=== PATIENT | female | born 1955 | race Caucasian/White ===

== ENCOUNTER 2017-08-27 22:07 | Emergency (ER) | payer OTHER ==
[2017-08-27 23:28] LABS: Absolute Lymphocytes (CBC) 1.6 K/uL (0.7-4.9); Absolute Monocytes 0.7 K/uL (0.1-1.3); Absolute Neutrophil 5.6 K/uL (1.8-8.0); Basophils % 0.7 % (0-1.3); Eosinophils % 3.5 % (0-4.4); Hematocrit 38.2 % (36.0-45.0); Lymphocytes % 19.7 % (15.3-44.8); MCH 29.8 pg (27.0-35.0); MCV 90.2 fL (80-100); MPV 8.2 fL (7.6-11.3); Monocytes % 8.5 % (3.3-12.3); RBC Red Blood Cell Count 4.24 M/uL (3.86-4.86)
[2017-08-27 23:39] LABS: Bicarbonate 31 mEq/L (21-31); Glucose Level 95 mg/dL (65-120); Lipase 24 U/L (22-51); Potassium 3.8 mEq/L (3.6-5.0); Sodium Level 142 mEq/L (135-145)
[2017-08-27 23:43] LABS: Protime INR 0.93
[2017-08-27 23:46] LABS: ALT/SGPT 19 IU/L (10-60); AST/SGOT 20 IU/L (10-42); Albumin 4.4 g/dL (3.2-5.5); Alkaline Phosphatase 66 IU/L (42-121); BUN Blood Urea Nitrogen 16 mg/dL (6-20); Bilirubin Direct < 0.1 mg/dL (0-0.2); Bilirubin Total 0.3 mg/dL (0.3-1.2); Protein, Total 7.5 g/dL (6.0-8.3)
[2017-08-27] MEDS ORDERED: DIPHENHYDRAMINE 50 MG/ML VIAL ONE (23:59)
[2017-08-27] MEDS ORDERED: METOCLOPRAMIDE 10 MG/2mL INJ ONE (23:59)
[2017-08-27] MEDS ORDERED: NA CHLORIDE 0.9% 500 ML ONE (23:59)
--- NOTE | 2017-08-28 00:02 | EDPHYS ---
Physician Documentation [facility] Name: Fahad Nielsen Age: 62 yrs Sex: Female : 1955 Arrival Date: 08/27/2017 Time: 22:08 Bed 8 Private MD: ED Physician Ronnie Flowers HPI: 08/27 22:37 This 62 yrs old Female presents to ER via Ambulatory with complaints of High rn Blood Pressure. 22:37 The patient has elevated blood pressure and discovered this at home. Onset: The rn symptoms/episode began/occurred at an unknown time. Modifying factors:. Associated signs and symptoms: Pertinent positives: chest pain, headache. The patient has experienced similar episodes in the past. Reports having headaches for 1 week, family came over today, had her check BP, was 200/100, no syncope, has known aneurysms, also having intermittent chest pain "for a while", had cath 1 month ago and told very small plaques, takes plavix and nitro for chest pain, no worse today. Also reports abd burning and nausea when she eats, no dark stool or hematemesis, has had gallbladder tested and told was normal. . Historical: - Allergies: 22:26 Morphine; bb - Home Meds: 22:26 alprazolam 0.5 mg Oral tab [Active]; baclofen 10 mg Oral tab [Active]; ibuprofen 800 mg bb Oral tab [Active]; Suboxone 8-2 mg sublingual film [Active]; topiramate 50 mg oral tab [Active]; amlodipine 5 mg tab [Active]; clopidogrel 75 mg oral tab [Active]; Nitroglycerin SL [Active]; - PMHx: 22:26 Aneurysm; DVT; Hypertension; bb - PSHx: 22:26 Appendectomy; bb - Immunization history:: Adult Immunizations up to date. - Social history:: Smoking status: Patient uses tobacco products, smokes one-half pack cigarettes per day, Patient/guardian denies using alcohol, street drugs. - Family history:: not pertinent. - Hospitalizations: : No recent hospitalization is reported. ROS: 22:37 Constitutional: Negative for fever, chills, and weight loss, Eyes: Negative for injury, rn pain, redness, and discharge, Neck: Negative for injury, pain, and swelling, Cardiovascular: Negative for palpitations, and edema, Respiratory: Negative for shortness of breath, cough, wheezing, and pleuritic chest pain, Abdomen/GI: Negative for vomiting, diarrhea, and constipation, Back: Negative for injury and pain, MS/Extremity: Negative for injury and deformity, Skin: Negative for injury, rash, and discoloration, Neuro: Negative for weakness, numbness, tingling, and seizure. Exam: 22:37 Constitutional: This is a well developed, well nourished patient who is awake, alert, rn and in no acute distress. Head/Face: Normocephalic, atraumatic. Eyes: Pupils equal round and reactive to light, extra-ocular motions intact. Lids and lashes normal. Conjunctiva and sclera are non-icteric and not injected. Cornea within normal limits. Periorbital areas with no swelling, redness, or edema. Neck: Trachea midline, no thyromegaly or masses palpated, and no cervical lymphadenopathy. Supple, full range of motion without nuchal rigidity, or vertebral point tenderness. No Meningismus. Cardiovascular: Regular rate and rhythm with a normal S1 and S2. No gallops, murmurs, or rubs. Normal PMI, no JVD. No pulse deficits. Respiratory: Lungs have equal breath sounds bilaterally, clear to auscultation and percussion. No rales, rhonchi or wheezes noted. No increased work of breathing, no retractions or nasal flaring. Abdomen/GI: Soft, non-tender, with normal bowel sounds. No distension or tympany. No guarding or rebound. No evidence of tenderness throughout. Skin: Warm, dry with normal turgor. Normal color with no rashes, no lesions, and no evidence of cellulitis. MS/ Extremity: Pulses equal, no cyanosis. Neurovascular intact. Full, normal range of motion. Equal circumference. Neuro: Awake and alert, GCS 15, oriented to person, place, time, and situation. Cranial nerves II-XII grossly intact. Motor strength 5/5 in all extremities. Sensory grossly intact. Cerebellar exam normal. Normal gait. Vital Signs: 22:26 BP 195 / 92; Pulse 73; Resp 12 S; Temp 97.6(O); Pulse Ox 99% on R/A; Weight 55.79 kg bb (R); Height 5 ft. 7 in. (170.18 cm) (R); Pain 8/10; 22:32 BP 187 / 79; Pulse 71; Resp 16; Pulse Ox 98% on R/A; lp1 23:00 BP 153 / 76; Pulse 65; Resp 14; Pulse Ox 99% on R/A; lp1 23:20 BP 161 / 85; Pulse 68; Resp 12; Pulse Ox 100% on R/A; lp1 08/28 00:00 BP 157 / 86; Pulse 64; Resp 12; Pulse Ox 98% on R/A; lp1 00:46 BP 165 / 76; Pulse 66; Resp 19; Pulse Ox 99% on R/A; lp1 08/27 22:26 Body Mass Index 19.26 (55.79 kg, 170.18 cm) bb MDM: 08/27 22:11 Patient medically screened. rn 08/28 00:00 Differential diagnosis: hypertensive crisis, Malignant HTN, migraine. Data reviewed: rn vital signs, nurses notes, lab test result(s), EKG, radiologic studies, CT scan, and as a result, I will discharge patient. Counseling: I had a detailed discussion with the patient and/or guardian regarding: the historical points, exam findings, and any diagnostic results supporting the discharge/admit diagnosis, lab results, radiology results, the need for outpatient follow up, to return to the emergency department if symptoms worsen or persist or if there are any questions or concerns that arise at home. Response to treatment: the patient's symptoms have mildly improved after treatment, and as a result, I will discharge patient. Special discussion: I discussed with the patient/guardian in detail that at this point there is no indication for admission to the hospital. It is understood, however, that if the symptoms persist or worsen the patient needs to return immediately for re-evaluation. 08/27 22:36 Order name: Basic Metabolic Panel; Complete Time: 23:56 rn 08/27 22:36 Order name: BNP; Complete Time: 23:56 rn 08/27 22:36 Order name: CBC with Diff; Complete Time: 23:33 rn 08/27 22:36 Order name: Hepatic Function; Complete Time: 23:56 rn 08/27 22:36 Order name: Lipase; Complete Time: 23:56 rn 08/27 22:36 Order name: Protime (+inr); Complete Time: 23:56 rn 08/27 22:36 Order name: CT Head Brain wo Cont rn 08/27 22:36 Order name: Ptt, Activated; Complete Time: 23:56 rn 08/27 22:36 Order name: Troponin (emerg Dept Use Only); Complete Time: :56 rn 08/27 22:36 Order name: EKG; Complete Time: 22:37 rn 08/27 22:36 Order name: Cardiac monitoring; Complete Time: :56 rn 08/27 22:36 Order name: EKG - Nurse/Tech; Complete Time: 23:16 rn 08/27 22:36 Order name: IV Saline Lock; Complete Time: 23:05 rn 08/27 22:36 Order name: Labs collected and sent; Complete Time: 23:05 rn 08/27 22:36 Order name: NPO; Complete Time: :56 rn 08/27 22:36 Order name: O2 Per Protocol; Complete Time: :56 rn 08/27 22:36 Order name: O2 Sat Monitoring; Complete Time: 22:56 rn Administered Medications: 00:07 Drug: Benadryl 12.5 mg Route: IVP; Site: right antecubital; lp1 00:47 Follow up: Response: No adverse reaction; No change in condition lp1 00:07 Drug: Reglan 10 mg Route: IVP; Site: right antecubital; lp1 00:47 Follow up: Response: No change in condition lp1 00:07 Drug: NS 0.9% 500 ml Route: IV; Rate: bolus; Site: right antecubital; lp1 00:48 Follow up: IV Status: Completed infusion; IV Intake: 500ml lp1 Disposition: 08/28/17 00:01 Discharged to Home. Impression: Headache, Hypertension. - Condition is Stable. - Discharge Instructions: Migraine Headache, Hypertension. - Medication Reconciliation Form, Thank You Letter, Antibiotic Education, Prescription Opioid Use form. - Follow up: Private Physician; When: As needed; Reason: Recheck today's complaints, Re-evaluation by your physician. - Problem is an ongoing problem. - Symptoms have improved. Signatures: Dispatcher [employer] Altagracia Layton, RN RN Ronnie Jones MD MD rn Pena, Laura, RN RN lp1
--- NOTE | 2017-08-28 00:02 | ER ---
Nurse's Notes [facility] Name: Fahad Nielsen Age: 62 yrs Sex: Female : 1955 Arrival Date: 08/27/2017 Time: 22:08 Bed 8 Private MD: Diagnosis: Headache;Hypertension Presentation: 08/27 22:21 Presenting complaint: Patient states: she has had a headache for about a week, has bb chronic chest pain, has burning to upper abdomen after eating and vomits, pt's family had her check her blood pressure tonight and it was elevated. Transition of care: patient was not received from another setting of care. Onset of symptoms was August 20, 2017. Initial Sepsis Screen: Does the patient meet any 2 criteria? No. Patient's initial sepsis screen is negative. Does the patient have a suspected source of infection? No. Patient's initial sepsis screen is negative. Care prior to arrival: Medication(s) given: Nitroglycerin, 0.4 mg SL x 2. 22:21 Method Of Arrival: Ambulatory bb 22:21 Acuity: MOOKIE 2 bb Historical: - Allergies: 22:26 Morphine; bb - Home Meds: 22:26 alprazolam 0.5 mg Oral tab [Active]; baclofen 10 mg Oral tab [Active]; ibuprofen 800 mg bb Oral tab [Active]; Suboxone 8-2 mg sublingual film [Active]; topiramate 50 mg oral tab [Active]; amlodipine 5 mg tab [Active]; clopidogrel 75 mg oral tab [Active]; Nitroglycerin SL [Active]; - PMHx: 22:26 Aneurysm; DVT; Hypertension; bb - PSHx: 22:26 Appendectomy; bb - Immunization history:: Adult Immunizations up to date. - Social history:: Smoking status: Patient uses tobacco products, smokes one-half pack cigarettes per day, Patient/guardian denies using alcohol, street drugs. - Family history:: not pertinent. - Hospitalizations: : No recent hospitalization is reported. Screenin:33 Abuse screen: Denies threats or abuse. Denies injuries from another. Nutritional lp1 screening: No deficits noted. Tuberculosis screening: No symptoms or risk factors identified. Fall Risk None identified. Assessment: 22:31 General: Appears in no apparent distress. Behavior is appropriate for age. Pain: lp1 Complains of pain in back of head, abdomen, right jaw Pain currently is 8 out of 10 on a pain scale. Quality of pain is described as aching. Neuro: Level of Consciousness is awake, alert, obeys commands, Oriented to person, place, time, situation. Cardiovascular: Patient's skin is warm and dry. Respiratory: Respiratory effort is even, unlabored, Respiratory pattern is regular, symmetrical, Breath sounds are clear bilaterally. GI: Abdomen is non-distended. : No signs and/or symptoms were reported regarding the genitourinary system. EENT: No signs and/or symptoms were reported regarding the EENT system. Derm: Skin is pink, warm \T\ dry. Musculoskeletal: Circulation, motion, and sensation intact. 23:45 Reassessment: Patient and/or family updated on plan of care and expected duration. Pain lp1 level reassessed. Patient states continued pain to head, Provider notified. 08/28 00:45 Reassessment: Patient is alert, oriented x 3, equal unlabored respirations, skin lp1 warm/dry/pink. Patient states pain to head unchanged but ready for discharge. Vital Signs: 08/27 22:26 BP 195 / 92; Pulse 73; Resp 12 S; Temp 97.6(O); Pulse Ox 99% on R/A; Weight 55.79 kg bb (R); Height 5 ft. 7 in. (170.18 cm) (R); Pain 8/10; 22:32 BP 187 / 79; Pulse 71; Resp 16; Pulse Ox 98% on R/A; lp1 23:00 BP 153 / 76; Pulse 65; Resp 14; Pulse Ox 99% on R/A; lp1 23:20 BP 161 / 85; Pulse 68; Resp 12; Pulse Ox 100% on R/A; lp1 08/28 00:00 BP 157 / 86; Pulse 64; Resp 12; Pulse Ox 98% on R/A; lp1 00:46 BP 165 / 76; Pulse 66; Resp 19; Pulse Ox 99% on R/A; lp1 08/27 22:26 Body Mass Index 19.26 (55.79 kg, 170.18 cm) bb ED Course: 08/27 22:08 Patient arrived in ED. ds1 22:11 Ronnie Flowers MD is Attending Physician. rn 22:23 Triage completed. bb 22:26 Arm band placed on Patient placed in an exam room, on a stretcher, on pulse oximetry. bb Family accompanied patient. 22:30 Ofelia Moreira, RN is Primary Nurse. lp1 22:33 Patient has correct armband on for positive identification. Bed in low position. lp1 classroom monitor on. Pulse ox on. NIBP on. 22:56 CT Head Brain wo Cont In Process Unspecified. EDMS 23:00 Initial lab(s) drawn, by me, sent to lab. Inserted saline lock: 20 gauge in right cc antecubital area, using aseptic technique. Blood collected. 23:16 EKG done, by ED staff, reviewed by Ronnie Flowers MD. cc 04 00:46 No provider procedures requiring assistance completed. IV discontinued, No lp1 redness/swelling at site. Pressure dressing applied. Administered Medications: 00:07 Drug: Benadryl 12.5 mg Route: IVP; Site: right antecubital; lp1 00:47 Follow up: Response: No adverse reaction; No change in condition lp1 00:07 Drug: Reglan 10 mg Route: IVP; Site: right antecubital; lp1 00:47 Follow up: Response: No change in condition lp1 00:07 Drug: NS 0.9% 500 ml Route: IV; Rate: bolus; Site: right antecubital; lp1 00:48 Follow up: IV Status: Completed infusion; IV Intake: 500ml lp1 Intake: 00:48 IV: 500ml; Total: 500ml. lp1 Outcome: 00:01 Discharge ordered by . rn 00:46 Discharged to home via wheelchair, with family. lp1 00:46 Condition: good 00:46 Discharge instructions given to patient, family, Instructed on discharge instructions, follow up and referral plans. Demonstrated understanding of instructions, follow-up care. 00:47 Patient left the ED. lp1 Signatures: Dispatcher [employer] [facility] Camilla Hernandez ds1 Altagracia Martínez RN RN bb Ronnie Flowers MD MD rn Christian, Chelsea Ofelia Moreira, PARDEEP RN lp1
[2017-08-28 00:58] VITALS: TEMP 97.6
[2017-08-28 01:07] VITALS: BP 165/76; O2SAT 99
--- NOTE | 2017-08-28 07:15 | EKG ---
Test Date: 2017-08-27 Test Time: 23:13:06 It Risk And Assurance Manager: SILVA MEASUREMENT RESULTS: Intervals: Rate: 62 AZ: 182 QRSD: 106 QT: 446 QTc: 452 Hunter: P: 48 AZ: 182 QRS: 17 T: 39 INTERPRETIVE STATEMENTS: Normal sinus rhythm Normal ECG Compared to ECG 06/30/2017 21:55:41 No significant changes Electronically Signed On 08-28-17 07:14:55 CDT by Francisco Alamo
--- NOTE | 2017-08-28 08:14 | RAD REPORT ---
EXAM DESCRIPTION: CT - Head Brain Wo Cont - 08/28/2017 7:00 am CLINICAL HISTORY: Chest pain, headache A preliminary written report was provided at the time of the study, and the report was reviewed prio r to final dictation. COMPARISON: CT head March 2014 TECHNIQUE: Axial 5 mm thick images of the head were obtained without IV contrast. All CT scans are performed using dose optimization technique as appropriate and may include automated exposure control or mA/KV adjustment according to patient size. FINDINGS: No intracranial hemorrhage, mass, edema or shift of mid-line structures. No acute cortical based infarction. Left greater than right frontal lobe encephalomalacia is present presumed to be fr om prior ischemic events. The pattern is not clearly different from 2013. No cortical edema or sulcal effacement. No ventricular enlargement. No abnormal extra-axial fluid collections. Intracranial find ings are similar to the comparison. Physiologic and arterial calcifications are present. Mastoid air cells are clear. Chronic right maxillary sinusitis changes are noted. No acute bony findings. IMPRESSION: Bifrontal encephalomalacia changes similar to 2014. No acute intracranial finding seen.
== END 2017-08-28 00:47 | disposition home or self-care (01) ==
LOC: ER 22:07
DX: I10 Essential (primary) hypertension (principal); F17.210 Nicotine dependence, cigarettes, uncomplicated; Z88.5 Allergy status to narcotic agent; Z86.718 Personal history of other venous thrombosis and embolism
CPT/HCPCS: 36415; 70450; 80048; 80076; 83690; 83880; 84484; 85025; 85610; 85730; 93005; 96361; 96374; 96375; 99284; J2765

== ENCOUNTER 2018-04-13 08:30 | Day surgery (SDC) | payer OTHER ==
[2018-04-13] MEDS ORDERED: Ringers Lactate 1,000 ML IV ONE (09:05)
[2018-04-13] MEDS ORDERED: LIDOCAINE 1% MPF 5 ML VIAL ONE (10:36)
[2018-04-13] MEDS ORDERED: PROPOFOL 200 MG/20 ML VIAL IV ONE (10:36)
--- NOTE | 2018-04-13 10:54 | ENDO RPT ---
[address], [address] COLONOSCOPY PROCEDURE REPORT EXAM DATE: 04/13/2018 PATIENT NAME: Fahad Nielsen I. MR #: [id number] BIRTHDATE: 1955 ATTENDING: Daniel Larson DR STATUS: outpatient CIRCULAR STUFFER: Javier Keller, Tri Pritchett RN, and Mary Keller INDICATIONS: The patient is a 63 yr old Female here for a colonoscopy due to colon cancer screening PROCEDURE PERFORMED: Screening Colonoscopy and Colonoscopy MEDICATIONS: Per Anesthesia. ESTIMATED BLOOD LOSS: None CONSENT: The patient understands the risks and benefits of the procedure and understands that these risks include, but are not limited to: sedation, allergic reaction, infection, perforation and/or bleeding. Alternative means of evaluation and treatment include, among others: physical exam, x-rays, and/or surgical intervention. The patient elects to proceed with this endoscopic procedure. DESCRIPTION OF PROCEDURE: During intra-op preparation period all mechanical medical equipment was checked for proper function. Hand hygiene and appropriate measures for infection prevention was taken. Procedure, possible complications, alternatives including, but not limited to possibility of bleeding, perforation, tear, infection, sepsis, need for surgery, need for blood transfusion, were explained to the patient. After the risks, benefits and alternatives of the procedure were thoroughly explained, Informed consent was verified, confirmed and timeout was successfully executed by the treatment team. The patient was placed in the left lateral position. A digital rectal exam was performed and revealed no abnormalities of the rectum. After appropriate level of anesthesia, the scope was passed. The EC-[id number] ([id number]) and [id number] ([id number]) endoscope was introduced through the anus and advanced to the cecum, which was identified by both the appendix and ileocecal valve. The quality of the prep was poor. The instrument was then slowly withdrawn as the colon was fully examined. Scope withdrawal time was 10 minutes. COLON FINDINGS: Mild diverticulosis was noted in the sigmoid colon. No bleeding was noted from the diverticulosis. The colon mucosa was otherwise normal. Retroflexed views revealed no abnormalities. The scope was then completely withdrawn from the patient and the procedure terminated. ADVERSE EVENTS: There were no complications. IMPRESSIONS: 1. Mild diverticulosis was noted in the sigmoid colon 2. The colon mucosa was otherwise normal RECOMMENDATIONS: low fiber / diverticular diet RECALL: Return in 3 year(s) for Colonoscopy. Poor Prep - 2 day prep on next colonoscopy Daniel Larson DR eSigned: Daniel Larson DR 04/13/2018 10:53 AM cc: CPT CODES: ICD9 CODES: PATIENT NAME: Fahad Nielsen I. MR#: [id number]
[2018-04-13 11:36] VITALS: BP 131/71; TEMP 98; O2SAT 100
== END 2018-04-13 11:30 | disposition home or self-care (01) ==
LOC: OR 08:30
PROVIDERS: ATTEND Surgery
PROC: 0DJD8ZZ Inspection of Lower Intestinal Tract, Via Natural or Artificial Opening Endoscopic (ICD-10-PCS; principal; 2018-04-13 11:15)
DX: Z12.11 Encounter for screening for malignant neoplasm of colon (principal); K57.30 Diverticulosis of large intestine without perforation or abscess without bleeding; I10 Essential (primary) hypertension; F41.9 Anxiety disorder, unspecified; Z86.73 Personal history of transient ischemic attack (TIA), and cerebral infarction without residual deficits; Z80.9 Family history of malignant neoplasm, unspecified; Z83.3 Family history of diabetes mellitus; Z82.3 Family history of stroke; Z82.49 Family history of ischemic heart disease and other diseases of the circulatory system
CPT/HCPCS: 45378; J2704

== ENCOUNTER 2018-10-14 00:13 | Emergency (ER) | payer OTHER ==
[2018-10-14] MEDS ORDERED: NA CHLORIDE 0.9% 1,000 ML ONE (01:22)
[2018-10-14 02:01] LABS: Absolute Lymphocytes (CBC) 1.9 K/uL (0.7-4.9); Absolute Monocytes 0.7 K/uL (0.1-1.3); Absolute Neutrophil 4.7 K/uL (1.8-8.0); Basophils % 0.4 % (0-1.3); Eosinophils % 3.7 % (0-4.4); Hematocrit 37.2 % (36.0-45.0); Lymphocytes % 24.7 % (15.3-44.8); MPV 8.2 fL (7.6-11.3); Monocytes % 9.6 % (3.3-12.3); RBC Red Blood Cell Count 4.07 M/uL (3.86-4.86)
[2018-10-14 02:05] LABS: Protime INR 0.95
[2018-10-14 02:21] LABS: ALT/SGPT 25 U/L (12-78); AST/SGOT 24 U/L (15-37); Albumin 4.2 g/dL (3.4-5.0); Alkaline Phosphatase 78 U/L (45-117); BUN Blood Urea Nitrogen 30 mg/dL (7-18); Bicarbonate 23 mmol/L (21-32); Bilirubin Direct < 0.1 mg/dL (0-0.2); Bilirubin Total 0.4 mg/dL (0.2-1.0); Glucose Level 91 mg/dL (74-106); Lipase 122 U/L (73-393); Magnesium 2.2 mg/dL (1.8-2.4); NT PRO-BNP 38 pg/mL (<125); Potassium 3.5 mmol/L (3.5-5.1); Protein, Total 7.6 g/dL (6.4-8.2); Sodium Level 140 mmol/L (136-145); Troponin (Emerg Dept Use Only) < 0.02 ng/mL (0.0-0.045)
[2018-10-14] MEDS ORDERED: ACETAMINOPHEN 325 MG TABLET ONE (02:23)
[2018-10-14] MEDS ORDERED: ONDANSETRON 4 MG/2 ML VIAL ONE (02:23)
--- NOTE | 2018-10-14 02:56 | EDPHYS ---
Physician Documentation [facility] Name: Fahad Nielsen Age: 63 yrs Sex: Female : 1955 Arrival Date: 10/14/2018 Time: 00:17 Bed 25 Private MD: Garrett Mayberry ED Physician Chuy Garcia HPI: 10/14 01:01 This 63 yrs old Female presents to ER via Wheelchair with complaints of Fall mary Injury, Head Injury-Adult. 01:01 Details of fall: The patient fell from an upright position. Onset: The symptoms/episode mary began/occurred 1 day(s) ago. Associated injuries: The patient sustained injury to the head, contusion, deformity, hematoma, pain. Severity of symptoms: At their worst the symptoms were mild, moderate, in the emergency department the symptoms are unchanged. Historical: - Allergies: 00:39 Morphine; mg2 - Home Meds: 00:39 alprazolam 0.5 mg Oral tab [Active]; amlodipine 5 mg tab [Active]; clopidogrel 75 mg mg2 Oral tab [Active]; ibuprofen 800 mg Oral tab [Active]; baclofen 10 mg Oral tab [Active]; Suboxone 8-2 mg sublingual film [Active]; Nitroglycerin SL [Active]; topiramate 50 mg Oral tab [Active]; - PMHx: 00:39 Aneurysm; DVT; Hypertension; mg2 - PSHx: 00:39 leg, hand and neck surgery; mg2 - Immunization history: Last tetanus immunization: unknown. - Social history:: Smoking status: Patient uses tobacco products, unknown amount Patient/guardian denies using alcohol, street drugs. - Ebola Screening: : No symptoms or risks identified at this time. ROS: 01:03 Constitutional: Negative for fever, chills, and weight loss, ENT: Negative for injury, mary pain, and discharge, Neck: Negative for injury, pain, and swelling, Cardiovascular: Negative for chest pain, palpitations, and edema, Respiratory: Negative for shortness of breath, cough, wheezing, and pleuritic chest pain, Abdomen/GI: Negative for abdominal pain, nausea, vomiting, diarrhea, and constipation, : Negative for injury, bleeding, discharge, and swelling, MS/Extremity: Negative for injury and deformity, Skin: Negative for injury, rash, and discoloration, Neuro: Negative for headache, weakness, numbness, tingling, and seizure, Psych: Negative for depression, anxiety, suicide ideation, homicidal ideation, and hallucinations, Allergy/Immunology: Negative for hives, rash, and allergies, Endocrine: Negative for neck swelling, polydipsia, polyuria, polyphagia, and marked weight changes, Hematologic/Lymphatic: Negative for swollen nodes, abnormal bleeding, and unusual bruising. 01:03 Eyes: Positive for pain. :03 Neuro: Positive for headache. Exam: :03 Constitutional: This is a well developed, well nourished patient who is awake, alert, mary and in no acute distress. Eyes: Pupils equal round and reactive to light, extra-ocular motions intact. Lids and lashes normal. Conjunctiva and sclera are non-icteric and not injected. Cornea within normal limits. Periorbital areas with no swelling, redness, or edema. ENT: Nares patent. No nasal discharge, no septal abnormalities noted. Tympanic membranes are normal and external auditory canals are clear. Oropharynx with no redness, swelling, or masses, exudates, or evidence of obstruction, uvula midline. Mucous membranes moist. Chest/axilla: Normal chest wall appearance and motion. Nontender with no deformity. No lesions are appreciated. Cardiovascular: Regular rate and rhythm with a normal S1 and S2. No gallops, murmurs, or rubs. Normal PMI, no JVD. No pulse deficits. Respiratory: Lungs have equal breath sounds bilaterally, clear to auscultation and percussion. No rales, rhonchi or wheezes noted. No increased work of breathing, no retractions or nasal flaring. Abdomen/GI: Soft, non-tender, with normal bowel sounds. No distension or tympany. No guarding or rebound. No evidence of tenderness throughout. Female : Normal external genitalia. Skin: Warm, dry with normal turgor. Normal color with no rashes, no lesions, and no evidence of cellulitis. MS/ Extremity: Pulses equal, no cyanosis. Neurovascular intact. Full, normal range of motion. Neuro: Awake and alert, GCS 15, oriented to person, place, time, and situation. Cranial nerves II-XII grossly intact. Motor strength 5/5 in all extremities. Sensory grossly intact. Cerebellar exam normal. Normal gait. Psych: Awake, alert, with orientation to person, place and time. Behavior, mood, and affect are within normal limits. 01:03 Head/face: Noted is abrasion(s), hematoma, swelling, that is mild, of the left eye. 01:03 Neck: C-spine: C-collar placed in ED, Thyroid: appears normal, Trachea: is midline with no obvious abnormalities, ROM/movement: pain. 01:03 Back: pain, that is mild, ROM is painful, normal spinal alignment noted, CVA tenderness, is absent, vertebral tenderness, is not appreciated. Vital Signs: 00:35 BP 165 / 96; Pulse 90; Resp 18; Temp 99.6; Pulse Ox 98% on R/A; Weight 63.5 kg; Height mg2 5 ft. 7 in. (170.18 cm); Pain 7/10; 00:45 BP 148 / 87; Pulse 75; Resp 18; Pulse Ox 96% on R/A; mg2 02:13 BP 138 / 70; Pulse 75; Resp 18; Pulse Ox 98% on R/A; Pain 8/10; mg2 03:15 BP 128 / 81; Pulse 82; Resp 18; Temp 98; Pulse Ox 100% on R/A; Pain 0/10; mg2 00:35 Body Mass Index 21.93 (63.50 kg, 170.18 cm) mg2 Abiodun Coma Score: 00:35 Eye Response: spontaneous(4). Verbal Response: oriented(5). Motor Response: obeys mg2 commands(6). Total: 15. Trauma Score (Adult): 00:35 Eye Response: spontaneous(1); Verbal Response: oriented(1); Motor Response: obeys mg2 commands(2); Systolic BP: > 89 mm Hg(4); Respiratory Rate: 10 to 29 per min(4); [place]sie Score: 15; Trauma Score: 12 02:58 Eye Response: spontaneous(1); Verbal Response: oriented(1); Motor Response: obeys mg2 commands(2); Systolic BP: > 89 mm Hg(4); Respiratory Rate: 10 to 29 per min(4); [place] Score: 15; Trauma Score: 12 MDM: 00:48 Patient medically screened. [facility] 01:03 Data reviewed: vital signs, nurses notes, lab test result(s), EKG, radiologic studies, [facility] CT scan, plain films. 10/14 01:01 Order name: Basic Metabolic Panel [facility] 10/14 01:01 Order name: CBC with Diff [facility] 10/14 01:01 Order name: LFT's [facility] 10/14 01:01 Order name: Magnesium [facility] 10/14 01:01 Order name: NT PRO-BNP; Complete Time: 02:28 [facility] 10/14 01:01 Order name: PT-INR; Complete Time: 02:28 [facility] 10/14 01:01 Order name: Troponin (emerg Dept Use Only); Complete Time: 02:28 [facility] 10/14 01:01 Order name: Urine Culture [facility] 10/14 01:01 Order name: Lipase; Complete Time: 02:28 [facility] 10/14 01:04 Order name: Basic Metabolic Panel; Complete Time: 02:28 [facility] 10/14 01:05 Order name: CBC with Automated Diff; Complete Time: 02:28 [facility] 10/14 01:05 Order name: Liver (Hepatic) Function; Complete Time: 02:28 [facility] 10/14 01:05 Order name: Magnesium; Complete Time: 02:28 [facility] 10/14 01:01 Order name: CT Traumagram (Head C Spine CAP wo con) [facility] 10/14 01:01 Order name: XRAY Chest (1 view) [facility] 10/14 01:01 Order name: EKG; Complete Time: 01:06 [facility] 10/14 01:01 Order name: Cardiac monitoring; Complete Time: 02:06 [facility] 10/14 01:01 Order name: EKG - Nurse/Tech; Complete Time: 02:07 [facility] 10/14 01:01 Order name: IV Saline Lock; Complete Time: 02:07 [facility] 10/14 01:01 Order name: Labs collected and sent; Complete Time: 02:12 [facility] 10/14 01:01 Order name: O2 Per Protocol; Complete Time: 02:12 [facility] 10/14 01:01 Order name: O2 Sat Monitoring; Complete Time: 02:12 [facility] 10/14 01:01 Order name: Urine Dipstick-Ancillary (obtain specimen); Complete Time: 02:56 [facility] 10/14 01:01 Order name: Ice pack; Complete Time: 01:17 [facility] Administered Medications: 02:06 Drug: NS 0.9% 1000 ml Route: IV; Rate: 125 ml/hr; Site: right forearm; mg2 02:56 Follow up: Response: No adverse reaction; IV Status: Order to discontinue infusion; IV mg2 Intake: 500ml 02:12 Drug: Tylenol 650 mg Route: PO; mg2 02:55 Follow up: Response: No adverse reaction; Marked relief of symptoms mg2 02:12 Drug: Zofran 4 mg Route: IVP; Site: right forearm; mg2 02:55 Follow up: Response: No adverse reaction; Marked relief of symptoms; Pain is decreased mg2 Disposition: 10/14/18 02:54 Discharged to Home. Impression: Weakness, Fall due to bumping against object, Superficial injury of head. - Condition is Stable. - Discharge Instructions: Head Injury, Adult, Weakness, Fatigue, Weakness, [id number], Head Injury, Adult, [id number]. - Medication Reconciliation Form, Thank You Letter, Antibiotic Education, Prescription Opioid Use form. - Follow up: Garrett Mayberry; When: 2 - 3 days; Reason: Recheck today's complaints, Continuance of care, Re-evaluation by your physician. - Problem is new. - Symptoms have improved. Signatures: Dispatcher [employer] [facility] Chuy Garcia MD MD cha Gardose, Michele RN RN mg2 Corrections: (The following items were deleted from the chart) 01:26 00:43 Head C Spine MPR Wo Con+CT.RAD.BRZ ordered. [facility] 03:16 02:54 10/14/2018 02:54 Discharged to Home. Impression: Weakness; Fall due to bumping mg2 against object; Superficial injury of head. Condition is Stable. Discharge Instructions: Head Injury, Adult, Weakness, Fatigue, Weakness, [id number], Head Injury, Adult, [id number]. Forms are Medication Reconciliation Form, Thank You Letter, Antibiotic Education, Prescription Opioid Use. Follow up: Garrett Mayberry; When: 2 - 3 days; Reason: Recheck today's complaints, Continuance of care, Re-evaluation by your physician. Problem is new. Symptoms have improved. mary
--- NOTE | 2018-10-14 02:56 | ER ---
Nurse's Notes [facility] Name: Fahad Nielsen Age: 63 yrs Sex: Female : 1955 Arrival Date: 10/14/2018 Time: 00:17 Bed 25 Private MD: Garrett Mayberry Diagnosis: Weakness;Fall due to bumping against object;Superficial injury of head Presentation: 10/14 00:32 Presenting complaint: Patient states: i was using my walker last night when I tripped mg2 and fell and hit my head on the floor. i also have neck pain and vomited twice this afternoon around 3 pm. my son thinks i had episode of confusion and not acting right today. Care prior to arrival: None. Mechanism of Injury: Fall from standing position. an unknown distance. 00:32 Acuity: MOOKIE 2 mg2 00:32 Method Of Arrival: Wheelchair mg2 00:41 Trauma event details: Injury occurred in the county of Injury occurred[place] at home. Injury mg2 occurred: October 12, 2018. 00:42 Transition of care: patient was not received from another setting of care. Onset of mg2 symptoms was October 13, 2018 at 15:00. Risk Assessment: Do you want to hurt yourself or someone else? Patient reports no desire to harm self or others. Initial Sepsis Screen: Does the patient meet any 2 criteria? No. Patient's initial sepsis screen is negative. Does the patient have a suspected source of infection? No. Patient's initial sepsis screen is negative. Trauma Activation: Alert Physician: ED Physician; Name: dr Garcia; Notified At: 00:41; Arrived At: 00:41 Physician: General Surgeon; Name: ; Notified At: 00:41; Arrived At: Physician: Radiology; Name: Elle Almeida; Notified At: 00:41; Arrived At: 00:41 Physician: Respiratory; Name: ; Notified At: 00:41; Arrived At: Physician: Lab; Name: ; Notified At: 00:41; Arrived At: Historical: - Allergies: 00:39 Morphine; mg2 - Home Meds: 00:39 alprazolam 0.5 mg Oral tab [Active]; amlodipine 5 mg tab [Active]; clopidogrel 75 mg mg2 Oral tab [Active]; ibuprofen 800 mg Oral tab [Active]; baclofen 10 mg Oral tab [Active]; Suboxone 8-2 mg sublingual film [Active]; Nitroglycerin SL [Active]; topiramate 50 mg Oral tab [Active]; - PMHx: 00:39 Aneurysm; DVT; Hypertension; mg2 - PSHx: 00:39 leg, hand and neck surgery; mg2 - Immunization history: Last tetanus immunization: unknown. - Social history:: Smoking status: Patient uses tobacco products, unknown amount Patient/guardian denies using alcohol, street drugs. - Ebola Screening: : No symptoms or risks identified at this time. Screenin:37 Abuse screen: Denies threats or abuse. Denies injuries from another. Nutritional mg2 screening: No deficits noted. Tuberculosis screening: No symptoms or risk factors identified. 00:42 Fall Risk Fall in past 12 months (25 points). mg2 Primary Survey: 00:36 NO uncontrolled hemorrhage observed. A: The patient is alert. Airway: patent. mg2 Breathing/Chest: Respiratory pattern: regular, Respiratory effort: spontaneous, unlabored, Breath sounds: clear, bilaterally. in mediastinum, right upper lobe and left upper lobe. Circulation: Skin color: pink. Disability Alert. Exposure/Environment: All clothing and personal items were removed. Forensic evidence collection is not deemed to be indicated at this time. Items placed in patient belonging bag. There is no evidence of uncontrolled external bleeding. Obvious injury(ies) are noted at this time: swelling and bruising in the forehead A warming method has been applied: A warm blanket has been provided to the patient. 02:13 Reassessment Airway Airway Patent Breathing/Chest Respiratory pattern Regular mg2 Respiratory effort Spontaneous Unlabored Circulation Heart rhythm Sinus rhythm Color [place] Disability Alert. Assessment: 00:38 General: Appears in no apparent distress. uncomfortable, Behavior is calm, cooperative. mg2 00:43 Pain: Complains of pain in neck Pain does not radiate. Pain currently is 7 out of 10 on mg2 a pain scale. Quality of pain is described as aching, Pain began gradually, Is intermittent. Neuro: Level of Consciousness is awake, alert, obeys commands, Oriented to person, place, time, situation, Reports confusion. Cardiovascular: Capillary refill < 3 seconds Patient's skin is warm and dry. Respiratory: Airway is patent Respiratory effort is even, unlabored, Respiratory pattern is regular, symmetrical. GI: Reports vomiting, since this afternoon. : No signs and/or symptoms were reported regarding the genitourinary system. EENT: No signs and/or symptoms were reported regarding the EENT system. Derm: Skin is intact, is healthy with good turgor, Skin is pink, warm \T\ dry. normal. Musculoskeletal: Circulation, motion, and sensation intact. Capillary refill < 3 seconds. 01:01 Reassessment: patient sent to ct scan. mg2 02:12 Reassessment: patient complained of nausea and headache. pain addressed. mg2 Vital Signs: 00:35 BP 165 / 96; Pulse 90; Resp 18; Temp 99.6; Pulse Ox 98% on R/A; Weight 63.5 kg; Height mg2 5 ft. 7 in. (170.18 cm); Pain 7/10; 00:45 BP 148 / 87; Pulse 75; Resp 18; Pulse Ox 96% on R/A; mg2 02:13 BP 138 / 70; Pulse 75; Resp 18; Pulse Ox 98% on R/A; Pain 8/10; mg2 03:15 BP 128 / 81; Pulse 82; Resp 18; Temp 98; Pulse Ox 100% on R/A; Pain 0/10; mg2 00:35 Body Mass Index 21.93 (63.50 kg, 170.18 cm) mg2 Abiodun Coma Score: 00:35 Eye Response: spontaneous(4). Verbal Response: oriented(5). Motor Response: obeys mg2 commands(6). Total: 15. Trauma Score (Adult): 00:35 Eye Response: spontaneous(1); Verbal Response: oriented(1); Motor Response: obeys mg2 commands(2); Systolic BP: > 89 mm Hg(4); Respiratory Rate: 10 to 29 per min(4); [place] Score: 15; Trauma Score: 12 02:58 Eye Response: spontaneous(1); Verbal Response: oriented(1); Motor Response: obeys mg2 commands(2); Systolic BP: > 89 mm Hg(4); Respiratory Rate: 10 to 29 per min(4); Abiodun Score: 15; Trauma Score: 12 ED Course: 00:17 Patient arrived in ED. es 00:18 Garrett Mayberry DO is Private Physician. es 00:22 Eldon Talley, RN is Primary Nurse. mg2 00:35 Triage completed. mg2 00:40 Ice pack to injury. mg2 00:41 Patient has correct armband on for positive identification. Door closed. Warm blanket mg2 given. c-collar applied. 00:41 No provider procedures requiring assistance completed. mg2 00:43 Arm band placed on. mg2 00:43 Patient maintains SpO2 saturation greater than 95% on room air. Thermoregulation: warm mg2 blanket given to patient. 00:48 Chuy Garcia MD is Attending Physician. mary 01:38 X-ray completed. Patient tolerated procedure well. kw 01:39 XRAY Chest (1 view) In Process Unspecified. EDMS 02:09 CT Traumagram (Head C Spine CAP wo con) In Process Unspecified. EDMS 02:53 Garrett Mayberry DO is Referral Physician. mary 03:15 IV discontinued, intact, bleeding controlled, No redness/swelling at site. Pressure mg2 dressing applied. Administered Medications: 02:06 Drug: NS 0.9% 1000 ml Route: IV; Rate: 125 ml/hr; Site: right forearm; mg2 02:56 Follow up: Response: No adverse reaction; IV Status: Order to discontinue infusion; IV mg2 Intake: 500ml 02:12 Drug: Tylenol 650 mg Route: PO; mg2 02:55 Follow up: Response: No adverse reaction; Marked relief of symptoms mg2 02:12 Drug: Zofran 4 mg Route: IVP; Site: right forearm; mg2 02:55 Follow up: Response: No adverse reaction; Marked relief of symptoms; Pain is decreased mg2 Intake: 00:35 PO: 0ml; Total: 0ml. mg2 02:56 IV: 500ml; Total: 500ml. mg2 Outcome: 02:54 Discharge ordered by . mary 03:15 Discharged to home via wheelchair, with family. mg2 03:15 Condition: good 03:15 Discharge instructions given to patient, Instructed on discharge instructions, follow up and referral plans. Demonstrated understanding of instructions, follow-up care. 03:16 Patient's length of stay in the Emergency Department was greater than 2 hours. awaited mg2 for all the results. Patient's length of stay extended due to 03:16 Patient left the ED. mg2 Signatures: Dispatcher [employer] [facility] Chuy Garcia MD MD cha Salyer, Edna es Whitley, Kimberlee kw Gardose, Eldon, RN RN mg2 Corrections: (The following items were deleted from the chart) 01:12 01:11 BP 148 / 87; Pulse 75bpm; Resp 18bpm; Pulse Ox 96% RA; mg2 mg2 02:58 00:41 Trauma Activation: Alert mg2 mg2
[2018-10-14 03:42] VITALS: BP 128/81; TEMP 98; O2SAT 100
--- NOTE | 2018-10-14 09:02 | RAD REPORT ---
EXAM DESCRIPTION: Liyah Single View10/14/2018 1:40 am CLINICAL HISTORY: Cough COMPARISON: 2009 FINDINGS: The lungs appear clear of acute infiltrate. The heart is normal size. Chronic deformity o f proximal right clavicle IMPRESSION: No acute abnormalities displayed
--- NOTE | 2018-10-14 10:30 | EKG ---
Test Date: 2018-10-14 Test Time: 01:52:13 [employer] Estate Account Executive: MG MEASUREMENT RESULTS: Intervals: Rate: 75 SC: 178 QRSD: 102 QT: 396 QTc: 442 [place]: P: 51 SC: 178 QRS: 23 T: 65 INTERPRETIVE STATEMENTS: Normal sinus rhythm Normal ECG Compared to ECG 08/27/2017 23:13:06 No significant changes Electronically Signed On 10-14-18 10:29:55 CDT by Francisco Alamo
--- NOTE | 2018-10-15 11:25 | RAD REPORT ---
EXAM DESCRIPTION: CT - Head C Spine Cap Wo Con - 10/14/2018 6:14 am CLINICAL HISTORY: PAIN/injury COMPARISON: None available TECHNIQUE: Axial CT of the head obtained from the skull apex to the skull base without contrast. Axi al CT images of the cervical spine obtained from the skull base through the thoracic inlet. Sagittal and coronal reformatted images available. Axial CT images of the chest, abdomen, and pelvis obtained without IV contrast. Suboptimal evaluation of the soft tissues, vasculature, and solid organs due to lack of IV contrast. FINDINGS: CT head: No acute intracranial hemorrhage identified. No mass, mass effect, shift of the midline, abnormal ext ra-axial fluid collection or CT evidence of acute ischemic change identified. The ventricular system is unremarkable. No acute abnormalities of the supratentorial white matter, basal ganglia, cerebell um, or brainstem. 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 The visualized paranasal sinuses and the mastoids are clear. Contusion in the left frontal scalp soft tissues. No skull fracture identified. Visualized orbits and globes are unremarkable. Cervical CT: Straightening of the cervical lordosis may be secondary to patient positioning. The atlantoaxial, a tlantodental, and occipitoatlantal intervals are preserved. No acute fracture or subluxation identi fied. Vertebral body height preserved. Prevertebral soft tissues are unremarkable. Mild to moderate multilevel loss of intervertebral disc height with endplate spondylosis, uncovertebr al spurring, and facet arthropathy. Spurring of the atlantodental articulation. Visualized skull base is intact. No fracture of the visualized facial bones. Visualized mastoid air c ells and paranasal sinuses are well aerated. Visualized thyroid is unremarkable. No cervical lymphadenopathy. No pneumothorax in the visualized lung apices. Atherosclerotic vascular calcification. Chest: Thyroid: No abnormalities of the visualized thyroid. Great Vessels: Great vessels have normal anatomic configuration. Thoracic Aorta: Ectasia of the ascending thoracic aorta. Atherosclerotic calcification of the thoraci c aorta. Pulmonary arteries: The main pulmonary artery is not dilated. Heart: No cardiomegaly, significant pericardial effusion, or coronary artery atherosclerosis Lymph Nodes: No enlarged mediastinal lymph nodes identified. Esophagus: No abnormalities of the esophagus identified Other: No additional findings. Lungs: No confluent airspace opacity. Minimal bilateral dependent atelectasis. Pleura: No pleural effusion or pneumothorax. Trachea/Airways: No abnormalities of the visualized trachea or airways. Abdomen: Liver: The liver has normal size and density. Multiple small hypodense structures throughout the li nika are suboptimally evaluated due to lack of IV contrast, the largest of these right hepatic lobe me asuring 2.5 cm. These likely represent cysts or hemangiomas. Gallbladder: No calcified gallstones. Spleen, Pancreas, and Adrenal Glands: The spleen, pancreas, and adrenal glands are unremarkable. Kidneys: The kidneys have normal size without hydronephrosis. Hypodense cystic structure in the s uperior pole of the right kidney is incompletely evaluated due to lack of IV contrast and likely repr esents a cyst. Vasculature: Aortoiliac atherosclerosis. IVC is unremarkable. Stomach: The stomach and duodenum have normal course. Other: No free intraperitoneal air. No free fluid or lymphadenopathy. Pelvis: Bladder: Urinary bladder is unremarkable. Bowel: No dilated loops of large or small bowel. Scattered diverticula colon. Appendix: The appendix is not definitely identified. Pelvis: Uterus is not enlarged. Bones: Degenerative change of the spine, most severe at L4/5 and L5/S1. Healed fracture of the right clavicle healed fracture of the posterior right 10th rib. No acute fracture of the thoracic or lumbar spine identified. No acute fracture the pelvis identified. DLP: 1699 mGycm IMPRESSION: 1. No acute intracranial abnormality. 2. No acute fracture or subluxation of the cervical spine. 3. Multilevel degenerative change of the cervical spine. 4. No acute traumatic, inflammatory, or obstructive process identified in the chest, abdomen or pel vis. This exam was performed according to our departmental dose-optimization program, which includes autom ated exposure control, adjustment of the mA and/or kV according to patient size and/or use of iterati ve reconstruction technique. Electronically signed by: Pranav Bang 10/14/2018 2:35 AM CDT Due to temporary technical issues with the PACS/Fluency reporting system, reports are being signed by the in house radiologist as a courtesy to ensure prompt reporting. The interpreting radiologist is f ully responsible for the content of the report.
== END 2018-10-14 03:16 | disposition home or self-care (01) ==
LOC: ER 00:13
DX: S00.90XA Unspecified superficial injury of unspecified part of head, initial encounter (principal); R53.1 Weakness; W18.00XA Striking against unspecified object with subsequent fall, initial encounter; Y93.89 Activity, other specified; Y92.9 Unspecified place or not applicable; Z72.0 Tobacco use; Z88.5 Allergy status to narcotic agent; Z86.718 Personal history of other venous thrombosis and embolism; I10 Essential (primary) hypertension
CPT/HCPCS: 96361; 93005; 87088; 85025; 87086; 80048; 36415; 83735; 85610; 80076; 84484; 83690; 83880; 70450; 71250; 72125; 71045; 96374; 99284; J7030; J2405

== ENCOUNTER 2020-02-21 14:53 | Emergency (ER) | payer OTHER ==
--- OUTSIDE RECORDS SUMMARY | 2020-02-21 14:56 | XMS REPORT | Continuity of Care Document ---
:1955 Author Organization [facility] t Address [address] [place] [address] Care Team Providers Name Role Phone Edson EVANGELISTA, Etelvina Attending Clinician Only, Test Attending Clinician Unavailable Doctor Unassigned, Name Attending Clinician Unavailable Pob, Lab Main Attending Clinician Unavailable Edson EVANGELISTA, A Admitting Clinician Problems This patient has no known problems. Allergies, Adverse Reactions, Alerts This patient has no known allergies or adverse reactions. Medications This patient has no known medications. Procedures This patient has no known procedures. Encounters Start End Encounter Admission Attending Care Care Encounter Source Date/Time Date/Time Type Type Clinicians Facility Department ID 2019-11-15 2019-11-15 [facility] [id number] 06:16:04 10:45:00 Encounter Scar Oscar [id number] [place] [id number] Surgical [id number] [place] 071 2019-11-15 2019-11-15 Telephone [facility] [id number] 00:00:00 00:00:00 Scar Oscar [id number] [place] [id number] [place] [id number] 2019-11-14 2019-11-14 Laboratory Only, [facility] [id number] 13:05:16 13:20:16 Only Test Dayne [id number] [place] [id number] [place] [id number] 2019-11-14 2019-11-14 Orders Doctor JOSE [id number] 00:00:00 00:00:00 Only Unassigned, DIO [id number] [place] [id number] 2019-07-09 2019-07-09 Mercerizing Range Controller Irving Rosen [facility] [id number] 17:15:08 17:30:08 Visit Lab Main Dayne [id number] [place] [id number] [facility] [id number] [address] 2019-07-09 2019-07-09 Orders Doctor JOSE [id number] 00:00:00 00:00:00 Only Unassigned, DIO [id number] [place] [id number] Results This patient has no known results.
[2020-02-21] MEDS ORDERED: KETOROLAC 30 MG/ML INJ ONE (15:49)
[2020-02-21] MEDS ORDERED: DIPHENHYDRAMINE 50 MG/ML VIAL ONE (15:49)
[2020-02-21] MEDS ORDERED: NA CHLORIDE 0.9% 500 ML ONE ×2 (15:49→17:19)
--- NOTE | 2020-02-21 15:58 | RAD REPORT ---
EXAM DESCRIPTION: RAD - Chest Single View - 02/21/2020 3:51 pm CLINICAL HISTORY: diffuse myalgias and chest pain COMPARISON: Chest September 30, 2019 TECHNIQUE: AP portable chest image was obtained 02/21/2020 3:51 pm . FINDINGS: Lung volumes are low. This accentuates the baseline interstitial pattern. No peripheral ma ss, consolidation or failure suspected. Heart and vasculature are normal. No measurable pleural effus ion and no pneumothorax. No acute bony abnormality seen. No acute aortic findings suspected. IMPRESSION: No acute cardiopulmonary process.
[2020-02-21 16:07] LABS: Absolute Lymphocytes (CBC) 1.6 K/uL (0.7-4.9); Basophils % 0.6 % (0-1.3); Hematocrit 35.3 % (36.0-45.0); MPV 8.3 fL (7.6-11.3); RBC Red Blood Cell Count 3.93 M/uL (3.86-4.86)
[2020-02-21 16:27] LABS: ALT/SGPT 32 U/L (12-78); AST/SGOT 76 U/L (15-37); Albumin 3.9 g/dL (3.4-5.0); Alkaline Phosphatase 82 U/L (45-117); BUN Blood Urea Nitrogen 26 mg/dL (7-18); Bicarbonate 26 mmol/L (21-32); Bilirubin Direct 0.1 mg/dL (0-0.2); Bilirubin Total 0.5 mg/dL (0.2-1.0); Glucose Level 77 mg/dL (74-106); Magnesium 2.3 mg/dL (1.8-2.4); NT PRO-BNP 84 pg/mL (<125); Potassium 3.5 mmol/L (3.5-5.1); Protein, Total 7.5 g/dL (6.4-8.2); Sodium Level 137 mmol/L (136-145); Troponin (Emerg Dept Use Only) < 0.02 ng/mL (0.0-0.045)
--- NOTE | 2020-02-21 17:52 | EDPHYS ---
Physician Documentation [facility] Name: Fahad Nielsen Age: 65 yrs Sex: Female : 1955 Arrival Date: 02/21/2020 Time: 14:54 Bed 17 Private MD: ED Physician Chandrakant Jewell HPI: 02/20 17:43 This 65 yrs old Female presents to ER via Wheelchair with complaints of Near kdr Syncope, Dizziness. 17:43 The patient's problem is reported as weakness. Onset: The symptoms/episode kdr began/occurred gradually, 2 day(s) ago. Duration: The episode is continuous, the symptoms became persistent. Context: the episode(s) was witnessed, by family, symptoms became apparent occurred at home, occurred while the patient was at rest. The symptoms are alleviated by nothing. The symptoms are aggravated by walking. Onset: The symptoms/episode began/occurred gradually, 2 day(s) ago. 17:44 Associated signs and symptoms: The patient has no apparent associated signs or kdr symptoms. Severity of symptoms: At their worst the symptoms were mild in the emergency department the symptoms are unchanged. Patient's baseline: Neuro: alert and fully oriented, Motor: no deficits, Ambulation: walks without assistance, Speech: normal, The patient has a previous history of CVA. The patient has not experienced similar symptoms in the past. 17:53 The patient has not recently seen a physician. The patient has also had slight kdr dizziness. Historical: - Allergies: 15:02 Morphine; ss - Home Meds: 15:02 Suboxone 8-2 mg sublingual film [Active]; topiramate 50 mg Oral tab [Active]; ss clopidogrel 75 mg Oral tab [Active]; baclofen 10 mg Oral tab [Active]; alprazolam 0.5 mg Oral tab [Active]; amlodipine 5 mg tab [Active]; ibuprofen 800 mg Oral tab [Active]; Nitroglycerin SL [Active]; - PMHx: 15:02 Aneurysm; DVT; Hypertension; ss - PSHx: 15:02 leg, hand and neck surgery; ss - Immunization history:: Adult Immunizations up to date. - Social history:: Smoking status: Reported history of juuling and/or vaping. ROS: 17:53 Constitutional: Negative for fever, chills, and weight loss, Eyes: Negative for injury, kdr pain, redness, and discharge, ENT: Negative for injury, pain, and discharge, Neck: Negative for injury, pain, and swelling, Cardiovascular: Negative for chest pain, palpitations, and edema, Respiratory: Negative for shortness of breath, cough, wheezing, and pleuritic chest pain, Abdomen/GI: Negative for abdominal pain, nausea, vomiting, diarrhea, and constipation, Back: Negative for injury and pain, : Negative for injury, bleeding, discharge, and swelling, Skin: Negative for injury, rash, and discoloration, Psych: Negative for depression, anxiety, suicide ideation, homicidal ideation, and hallucinations, Allergy/Immunology: Negative for hives, rash, and allergies, Endocrine: Negative for neck swelling, polydipsia, polyuria, polyphagia, and marked weight changes, Hematologic/Lymphatic: Negative for swollen nodes, abnormal bleeding, and unusual bruising. 17:53 MS/extremity: Positive for Diffuse myalgias without fever, chills or other associated s/s. 17:53 Neuro: Positive for dizziness, headache, weakness, Dizziness is very mild - all kdr presenting s/s are very mild. Exam: 17:53 Constitutional: This is a well developed, well nourished patient who is awake, alert, kdr and in no acute distress. Head/Face: Normocephalic, atraumatic. Eyes: Pupils equal round and reactive to light, extra-ocular motions intact. Lids and lashes normal. Conjunctiva and sclera are non-icteric and not injected. Cornea within normal limits. Periorbital areas with no swelling, redness, or edema. Neck: Trachea midline, no thyromegaly or masses palpated, and no cervical lymphadenopathy. Supple, full range of motion without nuchal rigidity, or vertebral point tenderness. No Meningismus. Chest/axilla: Normal chest wall appearance and motion. Nontender with no deformity. No lesions are appreciated. Cardiovascular: Regular rate and rhythm with a normal S1 and S2. No gallops, murmurs, or rubs. Normal PMI, no JVD. No pulse deficits. Respiratory: Lungs have equal breath sounds bilaterally, clear to auscultation and percussion. No rales, rhonchi or wheezes noted. No increased work of breathing, no retractions or nasal flaring. Abdomen/GI: Soft, non-tender, with normal bowel sounds. No distension or tympany. No guarding or rebound. No evidence of tenderness throughout. Back: No spinal tenderness. No costovertebral tenderness. Full range of motion. Skin: Warm, dry with normal turgor. Normal color with no rashes, no lesions, and no evidence of cellulitis. MS/ Extremity: Pulses equal, no cyanosis. Neurovascular intact. Full, normal range of motion. Neuro: Awake and alert, GCS 15, oriented to person, place, time, and situation. Cranial nerves II-XII grossly intact. Motor strength 5/5 in all extremities. Sensory grossly intact. Cerebellar exam normal. Normal gait. 17:53 Psych: Behavior/mood is pleasant, cooperative, Affect is flat, Oriented to person, place, time, Patient has no thoughts/intents to harm self or others. Delusions/hallucinations are not present. 17:58 CT study not indicated or reported. Reason for not performing CT: NA kdr 19:28 ECG was reviewed by the Attending Physician. kdr Vital Signs: 14:59 BP 96 / 58; Pulse 57; Resp 12; Temp 97.9(TE); Pulse Ox 100% on R/A; Weight 58.97 kg; ss Height 5 ft. 7 in. (170.18 cm); Pain 8/10; 16:02 BP 106 / 89; Pulse 70; Resp 14; Temp 98.0(O); Pulse Ox 99% on R/A; mh5 17:15 BP 103 / 71; Pulse 58; Resp 18; Pulse Ox 99% on R/A; ph 18:29 BP 102 / 81; Pulse 62; Resp 16; Temp 97.7; Pulse Ox 100% on R/A; ph 14:59 Body Mass Index 20.36 (58.97 kg, 170.18 cm) NIH Stroke Scale Scores: 15:25 NIHSS Score: 1 ph MDM: 17:51 Patient medically screened. kdr 17:53 Data reviewed: vital signs, nurses notes, lab test result(s), radiologic studies. kdr Counseling: I had a detailed discussion with the patient and/or guardian regarding: the historical points, exam findings, and any diagnostic results supporting the discharge/admit diagnosis, lab results, radiology results, the need for outpatient follow up. 17:53 Special discussion: I discussed with the patient/guardian in detail that at this point kdr there is no indication for admission to the hospital. It is understood, however, that if the symptoms persist or worsen the patient needs to return immediately for re-evaluation. 02/20 15:26 Order name: Basic Metabolic Panel; Complete Time: 16:55 kdr 02/20 15:26 Order name: CBC with Diff; Complete Time: 16:55 kdr 02/20 15:26 Order name: LFT's; Complete Time: 16:55 kdr 02/20 15:26 Order name: Magnesium; Complete Time: 16:55 kdr 02/20 15:26 Order name: NT PRO-BNP; Complete Time: 16:55 kdr 02/20 15:26 Order name: Troponin (emerg Dept Use Only); Complete Time: 16:55 kdr 02/20 15:26 Order name: XRAY Chest (1 view); Complete Time: 16:55 kdr 02/20 15:26 Order name: EKG; Complete Time: 15:27 kdr 02/20 15:26 Order name: Cardiac monitoring; Complete Time: 15: kdr 02/20 15:52 Order name: Glucose, Ancillary Testing; Complete Time: 16:55 EDMS 02/20 15:26 Order name: EKG - Nurse/Tech; Complete Time: 15:28 kdr 02/20 15:26 Order name: IV Saline Lock; Complete Time: 15:28 kdr 02/20 15:26 Order name: Labs collected and sent; Complete Time: 15:28 kdr 02/20 15:26 Order name: O2 Per Protocol; Complete Time: 15:28 kdr 02/20 15:26 Order name: O2 Sat Monitoring; Complete Time: 15:28 kdr EC:28 Rate is 70 beats/min. Rhythm is regular, Normal Sinus Rhythm with No ectopy. QRS [place] kdr is Normal. LA interval is normal. QRS interval is normal. QT interval is normal. Clinical impression: Normal ECG. Administered Medications: 15:45 Drug: TORadol - Ketorolac 15 mg Route: IVP; Site: left femoral; ph 18:31 Follow up: Response: No adverse reaction; Pain is decreased ph 15:45 Drug: Benadryl 12.5 mg Route: IVP; Site: left forearm; ph 18:31 Follow up: Response: No adverse reaction ph 15:46 Drug: NS 0.9% 500 ml Route: IV; Rate: bolus; Site: left forearm; ph 16:45 Follow up: Response: No adverse reaction; IV Status: Completed infusion; IV Intake: ph 500ml 17:07 Drug: NS 0.9% 500 ml Route: IV; Rate: bolus; Site: left forearm; ph 18:31 Follow up: Response: No adverse reaction; IV Status: Completed infusion; IV Intake: ph 500ml Disposition: 02/21/20 17:51 Discharged to Home. Impression: Weakness, Dehydration. - Condition is Stable. - Discharge Instructions: Fatigue, Weakness, Qhai-oy-Ralw, Dehydration, Adult, Sluu-fj-Teoe. - Medication Reconciliation Form, Thank You Letter form. - Follow up: Private Physician; When: 2 - 3 days; Reason: If symptoms return, Further diagnostic work-up, Recheck today's complaints, Continuance of care, Re-evaluation by your physician. - Problem is an ongoing problem. - Symptoms have improved. NIH Stroke Scale - NIH Stroke Score Date: 02/21/2020 Time: 15:25 Total Score = 1 1a. Level of Consciousness (LOC) - 1(Not Alert) 1b. Level of Consciousness (LOC) (Year \T\ Age) - 0(Both) 1c. LOC Commands (Open \T\ Closes Eyes/Automotive Product Specialist) - 0(Both) 2. Best Gaze (Lateral Gaze Paresis) - 0(Normal) 3. Visual Field Loss - 0(No visual loss) 4. Facial Palsy - 0(Normal) 5a. Left Arm: Motor (10-second hold) - 0(No drift) 5b. Right Arm: Motor (10-second hold) - 0(No drift) 6a. Left Leg: Motor (5-second hold - always test supine) - 0(No drift) 6b. Right Leg: Motor (5-second hold - always test supine) - 0(No drift) 7. Limb Ataxia (finger/nose \T\ heel/oconnell - test with eyes open) - 0(Absent) 8. Sensory Loss (pinprick arms/legs/face) - 0(Normal) 9. Best Language: Aphasia (description/naming/reading) - 0(No aphasia) 10. Dysarthria (speech clarity - read or repeat words) - 0(Normal) 11. Extinction and Inattention (visual/tactile/auditory/spatial/personal) - 0(No abnormality) Initials: ph Signatures: Dispatcher [employer] Chandrakant Hope MD MD kdr Julia Miranda, PARDEEP RN ss Darcie Baires RN RN ph Corrections: (The following items were deleted from the chart) 18:32 17:51 02/21/2020 17:51 Discharged to Home. Impression: Weakness; Dehydration. ph Condition is Stable. Forms are Medication Reconciliation Form, Thank You Letter, Antibiotic Education, Prescription Opioid Use. Follow up: Private Physician; When: 2 - 3 days; Reason: If symptoms return, Further diagnostic work-up, Recheck today's complaints, Continuance of care, Re-evaluation by your physician. Problem is an ongoing problem. Symptoms have improved. kdr
--- NOTE | 2020-02-21 17:52 | ER ---
Nurse's Notes [facility] Name: Fahad Nielsen Age: 65 yrs Sex: Female : 1955 Arrival Date: 02/21/2020 Time: 14:54 Bed 17 Private MD: Diagnosis: Weakness;Dehydration Presentation: 02/20 14:59 Chief complaint: Patient states: dizziness, muscle spasms, near syncope, headache and ss fatigue that began 2 days ago. Coronavirus screen: Client denies travel out of the [place] in the last 14 days. Ebola Screen: Patient denies exposure to infectious person. Patient denies travel to an Ebola-affected area in the 21 days before illness onset. Initial Sepsis Screen: Does the patient meet any 2 criteria? No. Patient's initial sepsis screen is negative. Does the patient have a suspected source of infection? No. Patient's initial sepsis screen is negative. Risk Assessment: Do you want to hurt yourself or someone else? Patient reports no desire to harm self or others. Onset of symptoms was February 19, 2020. 14:59 Method Of Arrival: Wheelchair ss 14:59 Acuity: MOOKIE 2 ss Stroke Activation: Symptom onset > 6 hours Physician: Stroke Attending; Name: ; Notified At: ; Arrived At: Physician: Chief Stroke Resident; Name: ; Notified At: ; Arrived At: Physician: Stroke Resident; Name: ; Notified At: ; Arrived At: Physician: ED Attending; Name: ; Notified At: ; Arrived At: Physician: ED Resident; Name: ; Notified At: ; Arrived At: Historical: - Allergies: 15:02 Morphine; ss - Home Meds: 15:02 Suboxone 8-2 mg sublingual film [Active]; topiramate 50 mg Oral tab [Active]; ss clopidogrel 75 mg Oral tab [Active]; baclofen 10 mg Oral tab [Active]; alprazolam 0.5 mg Oral tab [Active]; amlodipine 5 mg tab [Active]; ibuprofen 800 mg Oral tab [Active]; Nitroglycerin SL [Active]; - PMHx: 15:02 Aneurysm; DVT; Hypertension; ss - PSHx: 15:02 leg, hand and neck surgery; ss - Immunization history:: Adult Immunizations up to date. - Social history:: Smoking status: Reported history of juuling and/or vaping. Screenin:55 Abuse screen: Denies threats or abuse. Denies injuries from another. Nutritional ph screening: No deficits noted. Tuberculosis screening: No symptoms or risk factors identified. Fall Risk No fall in past 12 months (0 pts). No secondary diagnosis (0 pts). IV access (20 points). Ambulatory Aid- None/Bed Rest/Nurse Assist (0 pts). Gait- Weak (10 pts.). Mental Status- Overestimates/Forgets Limitations (15 pts.). Total Canales Fall Scale indicates High Risk Score (45 or more points). Fall prevention measures have been instituted. Side Rails Up X 2 Placed Close to Nursing Station Frequent Obs/Assessments Occuring Family Present and informed to notify staff if the need to leave the bedside As available patient and family educated on Fall Prevention Program and Strategies. Assessment: 15:21 Reassessment: Dr Jewell at bedside. ph 15:25 VAN Scoring: Arm Drift: Patients demonstrates NO arm weakness. Patient is VAN Negative. ph 15:25 T-PA (Activase) Screening: Contraindications: Patient reports onset of signs and ph symptoms of stroke greater than 6 hours ago: Yes. 15:30 General: Appears in no apparent distress. comfortable, slender, well groomed, Behavior ph is calm, cooperative, drowsy. Pain: Complains of pain in chest, abdomen, right arm and left arm. Neuro: Level of Consciousness is awake, obeys commands, lethargic, listless, Oriented to person, place, time, situation, Reports weakness "all over". Cardiovascular: Reports chest pain, fatigue, lightheadedness, Denies nausea, shortness of breath, syncope, vomiting, Capillary refill < 3 seconds in bilateral fingers Patient's skin is warm and dry. Rhythm is sinus rhythm. Respiratory: Airway is patent Respiratory effort is even, unlabored. GI: No signs and/or symptoms were reported involving the gastrointestinal system. Derm: Skin is intact, is healthy with good turgor, Skin is pink, warm \\T\\ dry. Musculoskeletal: Circulation, motion, and sensation intact. Range of motion: intact in all extremities. 15:45 Patient has been NPO before screening. The patient is alert, and able to follow ph commands. The patient does not exhibit slurred or garbled speech. The patient is not exhibiting difficulty speaking. The patient does not exhibit difficulty understanding words. The patient is able to swallow own secretions with no drooling or need for suction. Patient tolerated one teaspoon of water. No drooling, immediate coughing, gurgling, or clearing of the throat was noted. The patient tolerated 90mL of water. No drooling, immediate coughing, gurgling, or clearing of the throat was noted. The patient passed the bedside swallow screening. Oral medications may be given as ordered. Contact Physician for further diet orders. Provider notified of bedside swallow screening results: Chandrakant Jewell MD. 16:30 Reassessment: Patient appears in no apparent distress at this time. Patient and/or ph family updated on plan of care and expected duration. Pain level reassessed. Pt remains drowsy, VSS, friend at bedside. 17:30 Reassessment: Patient appears in no apparent distress at this time. No changes from ph previously documented assessment. Patient and/or family updated on plan of care and expected duration. Pain level reassessed. 18:28 Reassessment: Patient appears in no apparent distress at this time. Patient and/or ph family updated on plan of care and expected duration. Pain level reassessed. Pt remains drowsy, instructed pt to check BP in morning before taking medications, also instructed to return to ED for worsening symptoms. Vital Signs: 14:59 BP 96 / 58; Pulse 57; Resp 12; Temp 97.9(TE); Pulse Ox 100% on R/A; Weight 58.97 kg; ss Height 5 ft. 7 in. (170.18 cm); Pain 8/10; 16:02 BP 106 / 89; Pulse 70; Resp 14; Temp 98.0(O); Pulse Ox 99% on R/A; mh5 17:15 BP 103 / 71; Pulse 58; Resp 18; Pulse Ox 99% on R/A; ph 18:29 BP 102 / 81; Pulse 62; Resp 16; Temp 97.7; Pulse Ox 100% on R/A; ph 14:59 Body Mass Index 20.36 (58.97 kg, 170.18 cm) NIH Stroke Scale Scores: 15:25 NIHSS Score: 1 ph ED Course: 14:54 Patient arrived in ED. bp1 14:55 Chandrakant Jewell MD is Attending Physician. kdr 15:01 Triage completed. ss 15:02 Arm band placed on right wrist. ss 15:17 Darcie Baires, RN is Primary Nurse. ph 15:51 XRAY Chest (1 view) In Process Unspecified. EDMS 15:55 Patient has correct armband on for positive identification. Bed in low position. Call light in reach. Side rails up X 1. Pulse ox on. NIBP on. air sampling and monitoring on. Door closed. Noise minimized. Warm blanket given. 15:59 Initial lab(s) drawn, by la, sent to lab. EKG done, by ED staff, reviewed by Chandrakant Jewell MD. Inserted saline lock: 22 gauge in left antecubital area, using aseptic technique. Blood collected. 16:00 Patient has correct armband on for positive identification. Bed in low position. Call [facility] light in reach. Side rails up X 1. Warm blanket given. air sampling and monitoring on. Pulse ox on. NIBP on. 16:01 Basic Metabolic Panel Sent. [facility] 16:01 CBC with Diff Sent. [facility] 16:02 LFT's Sent. [facility] 16:02 Magnesium Sent. [facility] 16:02 NT PRO-BNP Sent. [facility] 16:02 Troponin (emerg Dept Use Only) Sent. [facility] 18:29 No provider procedures requiring assistance completed. IV discontinued, intact, ph bleeding controlled, No redness/swelling at site. Pressure dressing applied. Administered Medications: 15:45 Drug: TORadol - Ketorolac 15 mg Route: IVP; Site: left femoral; ph 18:31 Follow up: Response: No adverse reaction; Pain is decreased ph 15:45 Drug: Benadryl 12.5 mg Route: IVP; Site: left forearm; ph 18:31 Follow up: Response: No adverse reaction ph 15:46 Drug: NS 0.9% 500 ml Route: IV; Rate: bolus; Site: left forearm; ph 16:45 Follow up: Response: No adverse reaction; IV Status: Completed infusion; IV Intake: ph 500ml 17:07 Drug: NS 0.9% 500 ml Route: IV; Rate: bolus; Site: left forearm; ph 18:31 Follow up: Response: No adverse reaction; IV Status: Completed infusion; IV Intake: ph 500ml Intake: 16:45 IV: 500ml; Total: 500ml. ph 18:31 IV: 500ml; Total: 1000ml. ph Outcome: 17:51 Discharge ordered by . kdr 18:30 Discharged to home via wheelchair, with family. ph 18:30 Condition: good 18:30 Discharge instructions given to patient, family, Instructed on discharge instructions, follow up and referral plans. Demonstrated understanding of instructions, follow-up care. 18:32 Patient left the ED. ph NIH Stroke Scale - NIH Stroke Score Date: 02/21/2020 Time: 15:25 Total Score = 1 1a. Level of Consciousness (LOC) - 1(Not Alert) 1b. Level of Consciousness (LOC) (Year \\T\\ Age) - 0(Both) 1c. LOC Commands (Open \\T\\ Closes Eyes/Preschool Assistant Teacher) - 0(Both) 2. Best Gaze (Lateral Gaze Paresis) - 0(Normal) 3. Visual Field Loss - 0(No visual loss) 4. Facial Palsy - 0(Normal) 5a. Left Arm: Motor (10-second hold) - 0(No drift) 5b. Right Arm: Motor (10-second hold) - 0(No drift) 6a. Left Leg: Motor (5-second hold - always test supine) - 0(No drift) 6b. Right Leg: Motor (5-second hold - always test supine) - 0(No drift) 7. Limb Ataxia (finger/nose \\T\\ heel/oconnell - test with eyes open) - 0(Absent) 8. Sensory Loss (pinprick arms/legs/face) - 0(Normal) 9. Best Language: Aphasia (description/naming/reading) - 0(No aphasia) 10. Dysarthria (speech clarity - read or repeat words) - 0(Normal) 11. Extinction and Inattention (visual/tactile/auditory/spatial/personal) - 0(No abnormality) Initials: ph Signatures: Dispatcher [employer] EDChandrakant Magaña MD MD [facility] Julia Miranda RN RN Darcie Baires RN RN Sruthi Kwong [facility] Nina Martinez [facility]
[2020-02-21 19:21] VITALS: BP 102/81; TEMP 97.7; O2SAT 100
== END 2020-02-21 18:32 | disposition home or self-care (01) ==
LOC: ER 14:53
DX: E86.0 Dehydration (principal); I10 Essential (primary) hypertension; Z88.5 Allergy status to narcotic agent; Z86.718 Personal history of other venous thrombosis and embolism; Z87.891 Personal history of nicotine dependence
CPT/HCPCS: 93005; 85025; 80048; 36415; 83735; 82947; 80076; 84484; 83880; 71045; 99284; J1200; J7040 ×2

== ENCOUNTER 2020-10-20 12:27 | Observation (INO) | payer OTHER ==
--- OUTSIDE RECORDS SUMMARY | 2020-10-20 12:28 | XMS REPORT | Continuity of Care Document ---
:1955 Author Organization [facility] t Address [address] [place] [address] Care Team Providers Name Role Phone Edson [...] Type Clinicians Facility Department ID 2019-11-15 2019-11-15 [facility] [id number] 06:16:04 10:45:00 Encounter Scar Oscar [id number] [place] [id number] Surgical [phone] [place] 071 2019-11-15 2019-11-15 Telephone [facility] [id number] 00:00:00 00:00:00 Scar Oscar [id number] [place] [id number] [place] [phone] [id number] 2019-11-14 2019-11-14 Laboratory Only, [facility] [id number] 13:05:16 13:20:16 Only Test Dayne [id number] [place] [id number] [place] [phone] 353 2019-11-14 2019-11-14 Orders Doctor JOSE [id number] 00:00:00 00:00:00 Only Unassigned, DIO [id number] [place] [phone] [id number] 2019-07-09 2019-07-09 Newspaper Subscription Solicitor Irving Rosen [facility] [id number] 17:15:08 17:30:08 Visit Lab Main Dayne [id number] [place] [id number] [facility] [phone] [address] 2019-07-09 2019-07-09 Orders Doctor JOSE [id number] 00:00:00 00:00:00 Only Unassigned, DIO [id number] [place] [id number] Results This patient has no known results.
[2020-10-20 13:20] LABS: Absolute Lymphocytes (CBC) 1.1 K/uL (0.7-4.9); Basophils % 0.9 % (0-1.3); Hematocrit 35.7 % (36.0-45.0); Lymphocytes % 22.2 % (15.3-44.8); MPV 9.1 fL (7.6-11.3); Protime INR 0.93; RBC Red Blood Cell Count 3.98 M/uL (3.86-4.86)
[2020-10-20 13:34] LABS: ALT/SGPT 21 U/L (12-78); AST/SGOT 14 U/L (15-37); Albumin 3.9 g/dL (3.4-5.0); Alkaline Phosphatase 78 U/L (45-117); BUN Blood Urea Nitrogen 15 mg/dL (7-18); Bicarbonate 29 mmol/L (21-32); Bilirubin Direct < 0.1 mg/dL (0-0.2); Bilirubin Total 0.3 mg/dL (0.2-1.0); Glucose Level 73 mg/dL (74-106); Magnesium 2.2 mg/dL (1.8-2.4); NT PRO-BNP 63 pg/mL (<125); Sodium Level 142 mmol/L (136-145); Troponin (Emerg Dept Use Only) < 0.02 ng/mL (0.0-0.045)
[2020-10-20] MEDS ORDERED: NITROGLYCERIN 0.4 MG/TAB SL ONE (13:43)
[2020-10-20] MEDS ORDERED: ASPIRIN 81 MG CHEWABLE TABLET ONE (13:43)
[2020-10-20] MEDS ORDERED: ONDANSETRON 4 MG/2 ML VIAL ONE (14:15)
[2020-10-20] MEDS ORDERED: FENTANYL CITR 100 MCG/2 ML ONE (14:15)
--- NOTE | 2020-10-20 14:40 | RAD REPORT ---
EXAM DESCRIPTION: CT - Angio Aorta For Dissection - 10/20/2020 2:09 pm CLINICAL HISTORY: DISSECTION COMPARISON: None. TECHNIQUE: Dynamically enhanced 3 mm thick images of the chest, abdomen, and upper pelvis were obtai sara during administration of approximately 150mL Isovue 370 IV contrast. Sagittal and coronal reconst ruction images were generated using MIP and reviewed. Exam utilizes a protocol to evaluate entire cou rse of the aorta. All CT scans are performed using dose optimization technique as appropriate and may include automated exposure control or mA/KV adjustment according to patient size. FINDINGS: Aorta is normal in diameter with no dissection or other acute aortic findings. Reconstruct ion images show no significant findings. Ascending aorta is 4.0 cm in diameter. Arch is 2.3 cm. Mid d escending thoracic aorta is 2.5 cm. Abdominal aorta tapers normally. There are aortic atherosclerotic wall calcifications distal to the inferior mesenteric artery extending only minimally into the nonan eurysmal common iliac arteries. No pulmonary artery abnormality. No cardiomegaly, pericardial thickening or pericardial effusion. No dense mass or consolidations seen. Dependent atelectasis is seen posteriorly. Very minimal reticul onodular opacity seen in the anterior aspect of right middle lobe. No pleural thickening, pleural eff usion or pneumothorax. No abnormal mediastinal or hilar mass or lymphadenopathy seen. No chest wall mass or abnormal axillar y lymphadenopathy. Celiac, superior mesenteric, inferior mesenteric and left renal arteries show no significant finding. There is stenosis of the proximal portion right renal artery estimated at 50%. Liver, spleen, pancre as, gallbladder, biliary tree and adrenal glands show no suspicious findings. A 2.4 centimeter cyst i s present upper pole of the right kidney. Additional smaller cortical cysts are seen in the right kid fredrick. In the upper pole of the left kidney there is a 14 millimeter small rounded enhancing mass suspi cious for a small renal cell carcinoma. Mass is not fully characterized on a CT aorta dissection stud y. No mass or abnormal lymphadenopathy. No free air, free fluid or inflammatory stranding. No urinar y bladder abnormality. 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 This mass is not fu lly evaluated on aorta dissection protocol study. A dedicated CT study of the abdomen using precontra st, contrast enhanced and delayed images would be recommended once the current contrast has fully nenita ared. Negative CT scan of the aorta for acute or significant finding Suspected 50% stenosis of the proximal right renal artery. Trace amount of reticulonodular opacification in the anterior right middle lobe. This could be a mini mal infiltrate but is a very small finding.
--- NOTE | 2020-10-20 14:46 | RAD REPORT ---
EXAM DESCRIPTION: RAD - Chest Single View - 10/20/2020 1:16 pm CLINICAL HISTORY: CHEST PAIN COMPARISON: Portable January 2020 TECHNIQUE: AP portable chest image was obtained 10/20/2020 1:16 pm . FINDINGS: No dense mass or consolidations seen. Minimal patchy interstitial and alveolar opacities a re present in the right midlung field. This is new from 2019 mass probably a very minimal infiltrate. No other mass or consolidations seen. Hilar regions within normal limits. Heart size is normal range . No vascular engorgement. No measurable pleural effusion and no pneumothorax. No acute bony abnormal ity seen. No acute aortic findings suspected. IMPRESSION: Suspected very minimal infiltrate right mid lung field.
[2020-10-20] MEDS ORDERED: MAGNES/ALUMIN/SIMET 30ML UCUP ONE (15:09)
[2020-10-20] MEDS ORDERED: LIDOCAINE VISCOUS 2% SOLN 15 ML UDC ONE (15:10)
--- NOTE | 2020-10-20 16:42 | EDPHYS ---
Physician Documentation [facility] Name: Fahad Nielsen Age: 65 yrs Sex: Female : 1955 Arrival Date: 10/20/2020 Time: 12:27 Bed 4 Private MD: [facility] ED Physician Chandrakant Jewell HPI: 10/20 16:21 This 65 yrs old Female presents to ER via Wheelchair with complaints of Chest jr8 Pain, heart pain. 16:21 The patient or guardian reports chest pain that is located primarily in the anterior jr8 chest wall, left. Onset: acutely, today. The pain radiates to Associated signs and symptoms: The patient has no apparent associated signs or symptoms. The chest pain is described as a pressure. Duration: The patient or guardian reports a single episode, that is still ongoing. Modifying factors: The symptoms are alleviated by nothing. the symptoms are aggravated by nothing. Severity of pain: At its worst the pain was moderate in the emergency department the pain is unchanged. The patient has not experienced similar symptoms in the past. The patient has not recently seen a physician. Historical: - Allergies: 12:49 Morphine; iw - Home Meds: 12:49 amlodipine 5 mg tab [Active]; Lyrica Oral [Active]; Suboxone 8-2 mg sublingual film iw [Active]; baclofen 10 mg Oral tab [Active]; ibuprofen 800 mg Oral tab [Active]; - PMHx: 12:49 Aneurysm; DVT; Hypertension; iw - PSHx: 12:49 leg, hand and neck surgery; iw - Immunization history:: Client reports having NOT received the Covid vaccine. - Social history:: Smoking status: Reported history of juuling and/or vaping. ROS: 16:21 Eyes: Negative for injury, pain, redness, and discharge, ENT: Negative for injury, jr8 pain, and discharge, Neck: Negative for injury, pain, and swelling, Respiratory: Negative for shortness of breath, cough, wheezing, and pleuritic chest pain, Abdomen/GI: Negative for abdominal pain, nausea, vomiting, diarrhea, and constipation, Back: Negative for injury and pain, MS/Extremity: Negative for injury and deformity, Skin: Negative for injury, rash, and discoloration, Neuro: Negative for headache, weakness, numbness, tingling, and seizure. 16:21 Cardiovascular: Positive for chest pain, Negative for edema, orthopnea, palpitations, paroxysmal nocturnal dyspnea. Exam: 16:21 Constitutional: This is a well developed, well nourished patient who is awake, alert, jr8 and in no acute distress. Neck: Trachea midline, no thyromegaly or masses palpated, and no cervical lymphadenopathy. Supple, full range of motion without nuchal rigidity, or vertebral point tenderness. No Meningismus. Chest/axilla: Normal chest wall appearance and motion. Nontender with no deformity. No lesions are appreciated. Cardiovascular: Regular rate and rhythm with a normal S1 and S2. No gallops, murmurs, or rubs. Normal PMI, no JVD. No pulse deficits. Respiratory: Lungs have equal breath sounds bilaterally, clear to auscultation and percussion. No rales, rhonchi or wheezes noted. No increased work of breathing, no retractions or nasal flaring. Abdomen/GI: Soft, non-tender, with normal bowel sounds. No distension or tympany. No guarding or rebound. No evidence of tenderness throughout. Back: No spinal tenderness. No costovertebral tenderness. Full range of motion. Skin: Warm, dry with normal turgor. Normal color with no rashes, no lesions, and no evidence of cellulitis. MS/ Extremity: Pulses equal, no cyanosis. Neurovascular intact. Full, normal range of motion. Neuro: Awake and alert, GCS 15, oriented to person, place, time, and situation. Cranial nerves II-XII grossly intact. Motor strength 5/5 in all extremities. Sensory grossly intact. Cerebellar exam normal. Normal gait. Vital Signs: 12:45 BP 141 / 72; Pulse 62; Resp 16; Temp 98.2; Pulse Ox 100% on R/A; Weight 56.7 kg; Height iw 5 ft. 7 in. (170.18 cm); Pain 8/10; 13:15 BP 145 / 72 LA (auto/reg); ld1 13:20 BP 126 / 81 RA (auto/reg); ld1 13:30 BP 125 / 75 RA (auto/reg); ld1 13:34 BP 113 / 69 LA (auto/reg); ld1 15:38 BP 130 / 99; Pulse 73; Resp 20; Pulse Ox 100% on 15% Non-rebreather mask; ld1 16:24 BP 152 / 67; Pulse 59; Resp 18; Pulse Ox 100% on R/A; ld1 18:08 BP 137 / 73; Pulse 70; Resp 16; Pulse Ox 100% on R/A; ld1 19:14 BP 120 / 59; Pulse 77; Resp 16 S; Pulse Ox 99% on R/A; ad5 12:45 Body Mass Index 19.58 (56.70 kg, 170.18 cm) iw MDM: 12:44 Patient medically screened. jr8 16:21 The patient was given aspirin in the Emergency Department. Data reviewed: vital signs, [facility] nurses notes, lab test result(s), EKG, radiologic studies, CT scan, plain films. Data interpreted: Pulse oximetry: on room air is 100 %. Interpretation: normal. Counseling: I had a detailed discussion with the patient and/or guardian regarding: the historical points, exam findings, and any diagnostic results supporting the discharge/admit diagnosis, lab results, radiology results, the need for further work-up and treatment in the hospital. ED course: Patient continues to have pain despite multiple modalities. Will admit for cardiac evaluation. Incidental suspected RCC explained to patient and hospitalist. 10/20 12:44 Order name: Basic Metabolic Panel [facility] 10/20 12:44 Order name: CBC with Diff [facility] 10/20 12:44 Order name: LFT's [facility] 10/20 12:44 Order name: Magnesium [facility] 10/20 12:44 Order name: NT PRO-BNP [facility] 10/20 12:44 Order name: PT-INR [facility] 10/20 12:44 Order name: Troponin (emerg Dept Use Only) [facility] 10/20 13:25 Order name: Protime (+INR); Complete Time: 13:26 EDPA 10/20 13:34 Order name: Basic Metabolic Panel; Complete Time: 13:36 EDPA 10/20 13:34 Order name: Liver (Hepatic) Function; Complete Time: 13:36 EDMS 10/20 13:34 Order name: Troponin (Emerg Dept Use Only); Complete Time: 13:36 EDMS 10/20 13:34 Order name: NT PRO-BNP; Complete Time: 13:36 EDMS 10/20 13:34 Order name: Magnesium; Complete Time: 13:36 EDPA 10/20 13:38 Order name: CBC with Automated Diff; Complete Time: 13:52 EDPA 10/20 12:44 Order name: XRAY Chest (1 view) [facility] 10/20 12:44 Order name: EKG; Complete Time: 12:45 [facility] 10/20 12:44 Order name: Cardiac monitoring; Complete Time: 13:06 [facility] 10/20 12:44 Order name: EKG - Nurse/Tech; Complete Time: 13:29 [facility] 10/20 12:44 Order name: IV Saline Lock; Complete Time: 13:06 [facility] 10/20 13:52 Order name: CT Aorta for Dissection [facility] 10/20 14:41 Order name: CT; Complete Time: 14:54 EDPA 10/20 14:47 Order name: RAD; Complete Time: 14:54 [facility] 10/20 16:52 Order name: COVID-19 : Document "Date of Symptom Onset" if Symptomatic. [facility] 10/20 17:53 Order name: CORONAVIRUS [facility] 10/20 18:48 Order name: SARS-COV-2 RT PCR; Complete Time: 18:55 [facility] 10/20 12:44 Order name: Labs collected and sent; Complete Time: 13:06 [facility] 10/20 12:44 Order name: O2 Per Protocol; Complete Time: 13:06 [facility] 10/20 12:44 Order name: O2 Sat Monitoring; Complete Time: 13:06 Administered Medications: 13:29 Drug: Aspirin Chewable Tablet 324 mg Route: PO; ld1 13:50 Follow up: Response: No adverse reaction ld1 13:29 Drug: Nitroglycerin 0.4 mg Route: Sublingual; ld1 13:34 Drug: Nitroglycerin 0.4 mg Route: Sublingual; ld1 13:39 Drug: Nitroglycerin 0.4 mg Route: Sublingual; ld1 13:50 Follow up: Response: No adverse reaction ld1 13:59 Drug: fentaNYL (PF) 50 mcg Route: IVP; Site: right antecubital; ld1 14:04 Follow up: Response: No adverse reaction ld1 13:59 Drug: Zofran (Ondansetron) 4 mg Route: IVP; Site: right antecubital; ld1 14:04 Follow up: Response: No adverse reaction ld1 15:04 Drug: GI Cocktail without - (Maalox Suspension 30 ml, Lidocaine Liquid 2 % 15 ld1 ml) Route: PO; 15:30 Follow up: Response: No adverse reaction ld1 Disposition: 10/21 06:15 Co-signature as Attending Physician, Chandrakant Jewell MD I agree with the assessment and kdr plan of care. Disposition: 10/20/20 16:41 Hospitalization ordered by Eladio Gregorio for Observation. Preliminary diagnosis is Chest pain, unspecified. - Bed requested for Telemetry/MedSurg (observation). - Status is Observation. ea - Condition is Stable. - Problem is new. - Symptoms are unchanged. Signatures: Dispatcher [employer] EDMS Mary Ann Keller, RN RN Chandrakant Boston MD MD [facility] Deborah Norton RN RN iw Roszak, Josh, PA PA jr8 Bonnie Belle RN Xochitl Nguyen ea RN RN ld1 Corrections: (The following items were deleted from the chart) 10/20 19:02 16:41 Hospitalization Ordered by Eladio Gregorio DO for Observation. Preliminary dw diagnosis is Chest pain, unspecified. Bed requested for Telemetry/MedSurg (observation). Status is Observation. Condition is Stable. Problem is new. Symptoms are unchanged. jr8 20:02 19:02 10/20/2020 16:41 Hospitalization Ordered by Eladio Gregorio DO for Observation. ea Preliminary diagnosis is Chest pain, unspecified. Bed requested for Telemetry/MedSurg (observation). Status is Observation. Condition is Stable. Problem is new. Symptoms are unchanged. dw
--- NOTE | 2020-10-20 16:42 | ER ---
Nurse's Notes [facility] Name: Fahad Nielsen Age: 65 yrs Sex: Female : 1955 Arrival Date: 10/20/2020 Time: 12:27 Bed 4 Private MD: Meliton Do Diagnosis: Chest pain, unspecified Presentation: 10/20 12:45 Chief complaint: Patient states: midsternal chest pain X 2 days, has appt with Dr. joe Ashley next week but pain has been constant, has chronic cough, no fever, pain radiates through her back now. Coronavirus screen: At this time, the client does not indicate any symptoms associated with coronavirus-19. Ebola Screen: Patient negative for fever greater than or equal to 101.5 degrees Fahrenheit, and additional compatible Ebola Virus Disease symptoms Patient denies exposure to infectious person. Patient denies travel to an Ebola-affected area in the 21 days before illness onset. No symptoms or risks identified at this time. Initial Sepsis Screen: Does the patient meet any 2 criteria? No. Patient's initial sepsis screen is negative. Does the patient have a suspected source of infection? No. Patient's initial sepsis screen is negative. Risk Assessment: Do you want to hurt yourself or someone else? Patient reports no desire to harm self or others. Onset of symptoms was October 18, 2020. 12:45 Method Of Arrival: Wheelchair iw 12:45 Acuity: MOOKIE 3 iw Historical: - Allergies: 12:49 Morphine; iw - Home Meds: 12:49 amlodipine 5 mg tab [Active]; Lyrica Oral [Active]; Suboxone 8-2 mg sublingual film iw [Active]; baclofen 10 mg Oral tab [Active]; ibuprofen 800 mg Oral tab [Active]; - PMHx: 12:49 Aneurysm; DVT; Hypertension; iw - PSHx: 12:49 leg, hand and neck surgery; iw - Immunization history:: Client reports having NOT received the Covid vaccine. - Social history:: Smoking status: Reported history of juuling and/or vaping. Screenin:28 Abuse screen: Denies threats or abuse. Denies injuries from another. Nutritional ld1 screening: No deficits noted. Tuberculosis screening: No symptoms or risk factors identified. Fall Risk None identified. Assessment: 13:26 General: Appears in no apparent distress. comfortable, Behavior is calm, cooperative, ld1 appropriate for age. Pain: Complains of pain in chest Pain radiates to back Pain currently is 8 out of 10 on a pain scale. Quality of pain is described as throbbing, Pain began 2-3 days ago. Is continuous. Neuro: Level of Consciousness is awake, alert, obeys commands, Oriented to person, place, time, situation, Appropriate for age. Cardiovascular: Reports chest pain, Capillary refill < 3 seconds Patient's skin is warm and dry. Rhythm is sinus bradycardia Chest pain quality is pressure, radiates back. Respiratory: Airway is patent Respiratory effort is even, unlabored, Respiratory pattern is regular, symmetrical. GI: Abdomen is flat, non-distended. : No signs and/or symptoms were reported regarding the genitourinary system. EENT: No signs and/or symptoms were reported regarding the EENT system. Derm: No signs and/or symptoms reported regarding the dermatologic system. Musculoskeletal: No signs and/or symptoms reported regarding the musculoskeletal system. 14:00 Reassessment: Patient appears in no apparent distress at this time. No changes from ld1 previously documented assessment. Pt stated pain was unrelieved. Notified ERP. See MAR for orders. 15:38 Reassessment: Patient appears in no apparent distress at this time. No changes from ld1 previously documented assessment. Patient is alert, oriented x 3, equal unlabored respirations, skin warm/dry/pink. 16:24 Reassessment: Hospitalist at bedside discussing POC. ld1 18:08 Reassessment: Patient appears in no apparent distress at this time. No changes from ld1 previously documented assessment. Patient is alert, oriented x 3, equal unlabored respirations, skin warm/dry/pink. Laying in bed talking with friend at bedside. Denies concerns at this time. 19:14 Reassessment: Patient appears in no apparent distress at this time. Patient and/or ad5 family updated on plan of care and expected duration. Pain level reassessed. Patient is alert, oriented x 3, equal unlabored respirations, skin warm/dry/pink. Vital Signs: 12:45 BP 141 / 72; Pulse 62; Resp 16; Temp 98.2; Pulse Ox 100% on R/A; Weight 56.7 kg; Height iw 5 ft. 7 in. (170.18 cm); Pain 8/10; 13:15 BP 145 / 72 LA (auto/reg); ld1 13:20 BP 126 / 81 RA (auto/reg); ld1 13:30 BP 125 / 75 RA (auto/reg); ld1 13:34 BP 113 / 69 LA (auto/reg); ld1 15:38 BP 130 / 99; Pulse 73; Resp 20; Pulse Ox 100% on 15% Non-rebreather mask; ld1 16:24 BP 152 / 67; Pulse 59; Resp 18; Pulse Ox 100% on R/A; ld1 18:08 BP 137 / 73; Pulse 70; Resp 16; Pulse Ox 100% on R/A; ld1 19:14 BP 120 / 59; Pulse 77; Resp 16 S; Pulse Ox 99% on R/A; ad5 12:45 Body Mass Index 19.58 (56.70 kg, 170.18 cm) iw ED Course: 12:27 Patient arrived in ED. am2 12:28 Meliton Do DO is Private Physician. am2 12:43 Alejo Valentino PA is PHCP. jr8 12:44 Chandrakant Jewell MD is Attending Physician. jr8 12:48 Triage completed. iw 12:49 Arm band placed on. iw 12:50 Xochitl Quiros, PARDEEP is Primary Nurse. ld1 13:28 Patient has correct armband on for positive identification. Placed in gown. Bed in low ld1 position. Call light in reach. Side rails up X2. school bus monitor on. Pulse ox on. NIBP on. Door closed. Noise minimized. Warm blanket given. 13:28 No provider procedures requiring assistance completed. Inserted saline lock: 20 gauge ld1 in right antecubital area, using aseptic technique. Blood collected. Patient maintains SpO2 saturation greater than 95% on room air. 16:41 Eladio Gregorio DO is Hospitalizing Provider. jr8 17:08 COVID-19 : Document "Date of Symptom Onset" if Symptomatic. Sent. ld1 19:52 Patient admitted, IV remains in place. ad5 Administered Medications: 13:29 Drug: Aspirin Chewable Tablet 324 mg Route: PO; ld1 13:50 Follow up: Response: No adverse reaction ld1 13:29 Drug: Nitroglycerin 0.4 mg Route: Sublingual; ld1 13:34 Drug: Nitroglycerin 0.4 mg Route: Sublingual; ld1 13:39 Drug: Nitroglycerin 0.4 mg Route: Sublingual; ld1 13:50 Follow up: Response: No adverse reaction ld1 13:59 Drug: fentaNYL (PF) 50 mcg Route: IVP; Site: right antecubital; ld1 14:04 Follow up: Response: No adverse reaction ld1 13:59 Drug: Zofran (Ondansetron) 4 mg Route: IVP; Site: right antecubital; ld1 14:04 Follow up: Response: No adverse reaction ld1 15:04 Drug: GI Cocktail without - (Maalox Suspension 30 ml, Lidocaine Liquid 2 % 15 ld1 ml) Route: PO; 15:30 Follow up: Response: No adverse reaction ld1 Outcome: 16:41 Decision to Hospitalize by Provider. jr8 19:51 Admitted to Med/surg via stretcher, Report called to PARDEEP Silva ad5 19:51 Condition: stable 19:51 Instructed on the need for admit. 20:02 Patient left the ED. ea Signatures: Deborah Norton RN RN Alejo Crum PA PA jr8 Britt Vieyra amBonnie Ricci RN RN ea Dibbern, Lauren, RN RN ld1 Carmelo Hernández ad5
--- NOTE | 2020-10-20 17:15 | P.HP ---
Certification for Inpatient Patient admitted to: Observation With expected LOS: <2 Midnights Patient will require the following post-hospital care: None Practitioner: I am a practitioner with admitting privileges, knowledge of patient current condition, hospital course, and medical plan of care. Services: Services provided to patient in accordance with Admission requirements found in Title 42 Section 412.3 of the Code of Federal Regulations Patient History Date of Service: 10/20/20 Primary Care Provider: Dr. Do; Cardiology-Dr. Ashley Reason for admission: Chest pain History of Present Illness: 65-year-old female with history of hypertension, anxiety, chronic pain. Patient presented with chest pain mainly to the substernal region. She rated the pain about a 9 on a 10. It radiated to the back. Pain was a constant pressure. She denied any nausea, vomiting. Some mild shortness of breath noted. Patient came to the ER for further evaluation. Patient reports history of cardiac evaluation 2 years ago with cardiology as an outpatient which was unremarkable. Patient reported some congestion. She did take some Tylenol Sinus medication. In the ER patient was evaluated. Vital signs stable. Initial CBC unremarkable with hemoglobin 11. Sodium 142, potassium 4.0. Troponin unremarkable. CT scan revealed 14 mm left upper kidney mass suspect renal cell carcinoma. 50% stenosis of the proximal right artery noted. Patient was admitted for observation. CT scan also showed trace amount of opacification of the right middle lobe. Patient reports that she does vape. Drinks on occasion. Allergies iodine Allergy (Unknown, Verified 07/05/17 13:56) unable to remember morphine Allergy (Verified 07/05/17 13:56) Itching/Hives/Rash Home medications list reviewed: Yes Home Medications: Amlodipine [Norvasc*] 5 mg PO DAILY 09/11/13 Baclofen [Lioresal*] 20 mg PO BEDTIME 09/11/13 Clopidogrel Bisulfate [Plavix*] 75 mg PO DAILY 09/11/13 ALPRAZolam [Alprazolam] 0.5 mg PO ONCE 07/01/17 Buprenorphine HCl/Naloxone HCl [Suboxone 8 mg-2 mg Sl Film] 1 strip SL ONCE 07/01/17 Ibuprofen 800 mg PO TID PRN 07/01/17 Topiramate 50 mg PO BID 07/01/17 - Past Medical/Surgical History Diabetic: No -: Hypertension -: Chronic pain -: Anxiety -: R ankle sx -: appy -: csection x 2 -: R arm sx -: R shoulder sx -: L hand sx -: Pj knee sx Psychosocial/ Personal History: Patient is a . - Family History Mother -: Cancer (Female cancer) - Social History Smoking Status: Light Tobacco smoker (1-9 cigarettes/day) Alcohol use: Yes CD- Drugs: No Caffeine use: Yes Place of Residence: Home Review of Systems General: As per HPI ENT: Nose Congestion, As per HPI Respiratory: Cough, Shortness of Breath, As per HPI Cardiovascular: Chest Pain, As per HPI Gastrointestinal: Unremarkable Genitourinary: Unremarkable Musculoskeletal: Unremarkable Integumentary: Unremarkable Neurological: Unremarkable Lymphatics: Unremarkable Physical Examination - Physical Exam General: Alert, In no apparent distress, Oriented x3, Cooperative HEENT: Atraumatic, Normocephalic, PERRLA, Mucous membr. moist/pink Neck: Supple Respiratory: Clear to auscultation bilaterally, Normal air movement Cardiovascular: Normal pulses, Regular rate/rhythm Gastrointestinal: Normal bowel sounds, Soft and benign, Non-distended, No tenderness, No masses, No rebound, No guarding Musculoskeletal: No erythema, No tenderness, No warmth Integumentary: No tenderness/swelling Neurological: Normal speech, Normal strength at 5/5 x4 extr, Normal tone, Normal affect - Studies Laboratory Data (last 24 hrs) 10/20/20 13:02: PT 10.7, INR 0.93 10/20/20 13:02: WBC 5.10, Hgb 11.6 L, Hct 35.7 L, Plt Count 307 10/20/20 13:02: Sodium 142, Potassium 4.0, BUN 15, Creatinine 0.98, Glucose 73 L, Magnesium 2.2, Total Bilirubin 0.3, AST 14 L, ALT 21, Alkaline Phosphatase 78 Assessment and Plan - Plan Impression: Chest pain, atypical Possible bronchitis with history of vaping Hypertension CT showing 14 mm left upper pole kidney mass likely renal cell carcinoma 50% stenosis of the proximal right artery Suspect GERD Chronic pain Plan: Chest pain, atypical: Patient will be mated for further evaluation and treatme nt. Will monitor cardiac enzymes and telemetry. Will obtain echocardiogram to further evaluate. Will also consult cardiology for further evaluation. Await further recommendations from cardiology. Possible bronchitis. Will start albuterol and Atrovent. Will provide low-dose steroid. Recheck chest x-ray tomorrow. Anticipate improvement over the next 24 hours with possible discharge. Possible bronchitis with history of vaping: We will start low-dose prednisone. Provide albuterol and Atrovent. Hypertension: Continue [facility] CT showing 14 mm left upper pole kidney mass likely renal cell carcinoma: This will need to be further evaluated as an outpatient. Will recommend urology as an outpatient. 50% stenosis of the proximal right artery: We will monitor this closely. Will discuss further with cardiology. Suspect GERD: We will start Protonix Chronic pain: Continue with her medications including Lyrica, baclofen. Hold ibuprofen and Suboxone. DVT prophylaxis: Lovenox CODE STATUS: Full code Advanced care [email or web address] minutes: Patient desires to go home at discharge Discharge Plan: Home Plan to discharge in: 24 Hours - Advance Directives Does patient have a Living Will: No Does patient have a Durable POA for Healthcare: No Time Spent Managing Pts Care (In Minutes): 55
[2020-10-20] MEDS ORDERED: METHYLPREDNISOLONE 40 MG INJ IV ONE (20:01)
[2020-10-20] MEDS ORDERED: ALBUTEROL 2.5 MG/3 ML NEB SOL NEB PRN (20:01)
[2020-10-20] MEDS ORDERED: ACETAMINOPHEN 500 MG TAB PO PRN (20:01)
[2020-10-20] MEDS ORDERED: IPRATROPIUM BROM 0.5MG/2.5ML NEB PRN (20:01)
[2020-10-20] MEDS ORDERED: TRAMADOL HCL 50 MG TAB PO PRN (20:01)
[2020-10-20] MEDS ORDERED: ONDANSETRON 4 MG/2 ML VIAL IV PRN (20:01)
[2020-10-20 20:38] VITALS: BMI 20.2
[2020-10-20] MEDS: HYDROCODONE/APAP 7.5/325 MG TAB PO PRN (21:03)
[2020-10-20] MEDS: BACLOFEN 10 MG TAB PO SCH (21:03)
[2020-10-20] MEDS: PREGABALIN 50 MG CAP PO SCH (21:03)
[2020-10-20 21:32] LABS: Creatine Phosphokinase 63 U/L (26-192); Troponin I < 0.02 ng/mL (0.0-0.045)
[2020-10-20 21:34] LABS: CKMB Creatine Kinase MB < 1.0 ng/mL (1.0-3.6)
[2020-10-20] MEDS ORDERED: HYDROMORPHONE HCL 0.5 MG/0.5 ML INJ IV ONE (23:37)
--- NOTE | 2020-10-21 05:51 | P.DS ---
Admission Date: 10/20/20 Discharge Date: 10/21/20 Primary Care Provider: Dr. Do; Cardiology-Dr. Ashley Disposition: ROUTINE DISCHARGE Discharge Condition: GOOD Reason for Admission: Chest pain Consultations: Cardiology-Dr. Ashley Procedures: CT Scan: COMPARISON: None. TECHNIQUE: Dynamically enhanced 3 mm thick images of the chest, abdomen, and upper pelvis were obtained during administration of approximately 150mL Isovue 370 IV contrast. Sagittal and coronal reconstruction images were generated using MIP and reviewed. Exam utilizes a protocol to evaluate entire course of the aorta. All CT scans are performed using dose optimization technique as appropriate and may include automated exposure control or mA/KV adjustment according to patient size. FINDINGS: Aorta is normal in diameter with no dissection or other acute aortic findings. Reconstruction images show no significant findings. Ascending aorta is 4.0 cm in diameter. Arch is 2.3 cm. Mid descending thoracic aorta is 2.5 cm. Abdominal aorta tapers normally. There are aortic atherosclerotic wall calcifications distal to the inferior mesenteric artery extending only minimally into the nonaneurysmal common iliac arteries. No pulmonary artery abnormality. No cardiomegaly, pericardial thickening or pericardial effusion. No dense mass or consolidations seen. Dependent atelectasis is seen posteriorly. Very minimal reticulonodular opacity seen in the anterior aspect of right middle lobe. No pleural thickening, pleural effusion or pneumothorax. No abnormal mediastinal or hilar mass or lymphadenopathy seen. No chest wall mass or abnormal axillary lymphadenopathy. Celiac, superior mesenteric, inferior mesenteric and left renal arteries show no significant finding. There is stenosis of the proximal portion right renal artery estimated at 50%. Liver, spleen, pancreas, gallbladder, biliary tree and adrenal glands show no suspicious findings. A 2.4 centimeter cyst is present upper pole of the right kidney. Additional smaller cortical cysts are seen in the right kidney. In the upper pole of the left kidney there is a 14 millimeter small rounded enhancing mass suspicious for a small renal cell carcinoma. Mass is not fully characterized on a CT aorta dissection study. No mass or abnormal lymphadenopathy. No free air, free fluid or inflammatory stranding. No urinary bladder abnormality. 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 This mass is not fully evaluated on aorta dissection protocol study. A dedicated CT study of the abdomen using precontrast, contrast enhanced and delayed images would be recommended once the current contrast has fully cleared. Negative CT scan of the aorta for acute or significant finding Suspected 50% stenosis of the proximal right renal artery. Trace amount of reticulonodular opacification in the anterior right middle lobe. This could be a minimal infiltrate but is a very small finding. Follow up CXR: COMPARISON: Chest Single View dated 10/20/2020; Chest Single View dated 02/21/2020; Chest Pa And Lat (2 Views) dated 09/30/2019; Chest Pa And Lat (2 Views) dated 07/03/2019 FINDINGS: The lungs appear grossly clear. The heart is normal in size. No displaced fractures. Impression: Chest pain, atypical Possible bronchitis with history of vaping Hypertension CT showing 14 mm left upper pole kidney mass likely renal cell carcinoma 50% stenosis of the proximal right artery Suspect GERD Chronic pain Carotid arterial disease Hyperlipidemia Brief History of Present Illness: 65-year-old female with history of hypertension, anxiety, chronic pain. Patient presented with chest pain mainly to the substernal region. She rated the pain about a 9 on a 10. It radiated to the back. Pain was a constant pressure. She denied any nausea, vomiting. Some mild shortness of breath noted. Patient came to the ER for further evaluation. Patient reports history of cardiac evaluation 2 years ago with cardiology as an outpatient which was unremarkable. Patient reported some congestion. She did take some Tylenol Sinus medication. In the ER patient was evaluated. Vital signs stable. Initial CBC unremarkable with hemoglobin 11. Sodium 142, potassium 4.0. Troponin unremarkable. CT scan revealed 14 mm left upper kidney mass suspect renal cell carcinoma. 50% stenosis of the proximal right artery noted. Patient was admitted for observation. CT scan also showed trace amount of opacification of the right middle lobe. Patient reports that she does vape. Drinks on occasion. Hospital Course: Patient presented with chest pain. Patient with history of hypertension and carotid arterial disease. Patient was admitted for further evaluation. Cardiac enzymes unremarkable. Patient was seen and evaluated by cardiology. No intervention required at this time. CT scan revealed proximal right artery 50% stenosis. Patient likely with bronchitis. Patient with history of vaping. Patient was given treatment with improvement. At discharge for her bronchitis, patient will continue with prednisone 10 mg 1 pill twice daily for 7 days and 1 pill once daily for 7 days. She will also be provided albuterol 2 puffs 3 times a day as needed for shortness of breath. Vaping cessation recommended. Recommend follow-up with cardiology in 1 to 2 weeks to follow-up hospitalization. Recommend follow-up with PCP in 1 week to [place] hospitalization. Patient with hypertension. Blood pressure stable on Norvasc. At discharge she will continue with Norvasc 5 mg daily. Recommend to maintain blood pressure less than 130/80. Further adjustment can be done by her PCP. Patient with noted 50% stenosis of the proximal right artery. LDL 116. Patient with hyperlipidemia. Recommend follow-up with cardiology as an outpatient to further evaluate. Patient will likely require further cardiac intervention to further evaluate. Patient also with underlying carotid arterial disease. With her risk factors of carotid arterial disease and renal artery stenosis, will recommend to continue aspirin 81 mg daily and Lipitor 40 mg daily. Patient likely with underlying GERD. At discharge she will continue with Protonix 40 mg daily. Patient may benefit with GI evaluation as an outpatient. CT scan also revealed a 14 mm left upper pole kidney mass. Renal cell carcinoma is suspected. Radiology recommends a dedicated CT of the abdomen using precontrast, contrast enhanced and delayed images to further evaluate. This can be done as an outpatient. If abnormal patient will require urology evaluation and possible treatment. Recommend to establish care with urology to further evaluate. Recommend follow-up with her PCP to further assist. Patient with chronic pain. At discharge she will continue with her current medications of Lyrica, baclofen, and Suboxone. Recommend to discontinue ibuprofen. Patient with history of vaping. Recommend vaping cessation. Vital Signs/Physical Exam: Temp Pulse Resp BP Pulse Ox 98.3 F 69 18 108/55 L 94 10/21/20 04:00 10/21/20 04:00 10/21/20 04:00 10/21/20 04:00 10/21/20 04:00 General: Alert, In no apparent distress, Oriented x3, Cooperative HEENT: Atraumatic Neck: Supple Respiratory: Clear to auscultation bilaterally, Normal air movement Cardiovascular: Normal pulses, Regular rate/rhythm Gastrointestinal: Normal bowel sounds, Soft and benign, Non-distended, No tenderness, No masses, No rebound, No guarding Musculoskeletal: No erythema, No tenderness, No warmth Integumentary: No tenderness/swelling Neurological: Normal speech, Normal strength at 5/5 x4 extr, Normal tone, Normal affect Laboratory Data at Discharge: WBC 5.10 K/uL (4.3-10.9) 10/20/20 13:02 Hgb 11.6 g/dL (12.0-15.0) L 10/20/20 13:02 Hct 35.7 % (36.0-45.0) L 10/20/20 13:02 Plt Count 307 K/uL (152-406) 10/20/20 13:02 PT 10.7 SECONDS (9.5-12.5) 10/20/20 13:02 INR 0.93 10/20/20 13:02 Sodium 142 mmol/L (136-145) 10/20/20 13:02 Potassium 4.0 mmol/L (3.5-5.1) 10/20/20 13:02 BUN 15 mg/dL (7-18) 10/20/20 13:02 Creatinine 0.98 mg/dL (0.55-1.3) 10/20/20 13:02 Glucose 73 mg/dL (74-106) L 10/20/20 13:02 Magnesium 2.2 mg/dL (1.8-2.4) 10/20/20 13:02 Total Bilirubin 0.3 mg/dL (0.2-1.0) 10/20/20 13:02 AST 14 U/L (15-37) L 10/20/20 13:02 ALT 21 U/L (12-78) 10/20/20 13:02 Alkaline Phosphatase 78 U/L (45-117) 10/20/20 13:02 Troponin I < 0.02 ng/mL (0.0-0.045) 10/20/20 21:00 Home Medications: Albuterol Sulfate [Proair Hfa] 2 puff IH TID PRN #1 hfa.aer.ad 10/21/20 Aspirin [Aspirin EC 81 MG] 81 mg PO DAILY #90 tablet. 10/21/20 Atorvastatin Calcium [Lipitor] 40 mg PO BEDTIME #30 tablet 10/21/20 Pantoprazole [Protonix Tab*] 40 mg PO DAILYAC #30 tab 10/21/20 predniSONE [Deltasone*] 10 mg PO SEECOM #21 tab 10/21/20 New Medications: Aspirin [Aspirin EC 81 MG] 81 mg PO DAILY #90 tablet. predniSONE [Deltasone*] 10 mg PO SEECOM #21 tab Atorvastatin Calcium [Lipitor] 40 mg PO BEDTIME #30 tablet Albuterol Sulfate [Proair Hfa] 2 puff IH TID PRN #1 hfa.aer.ad PRN Reason: Shortness Of Breath Pantoprazole [Protonix Tab*] 40 mg PO DAILYAC #30 tab Physician Discharge Instructions: Patient presented with chest pain. Patient with history of hypertension and carotid arterial disease. Patient was admitted for further evaluation. Cardiac enzymes unremarkable. Patient was seen and evaluated by cardiology. No int ervention required at this time. CT scan revealed proximal right artery 50% stenosis. Patient likely with bronchitis. Patient with history of vaping. Patient was given treatment with improvement. At discharge for her bronchitis, patient will continue with prednisone 10 mg 1 pill twice daily for 7 days and 1 pill once daily for 7 days. She will also be provided albuterol 2 puffs 3 times a day as needed for shortness of breath. Vaping cessation recommended. Recommend follow-up with cardiology in 1 to 2 weeks to follow-up hospitalization. Recommend follow-up with PCP in 1 week to [place] hospitalization. Patient with hypertension. Blood pressure stable on Norvasc. At discharge she will continue with Norvasc 5 mg daily. Recommend to maintain blood pressure less than 130/80. Further adjustment can be done by her PCP. Patient with noted 50% stenosis of the proximal right artery. LDL 116. Patient with hyperlipidemia. Recommend follow-up with cardiology as an outpatient to further evaluate. Patient will likely require further cardiac intervention to further evaluate. Patient also with underlying carotid arterial disease. With her risk factors of carotid arterial disease and renal artery stenosis, will recommend to continue aspirin 81 mg daily and Lipitor 40 mg daily. Patient likely with underlying GERD. At discharge she will continue with Protonix 40 mg daily. Patient may benefit with GI evaluation as an outpatient. CT scan also revealed a 14 mm left upper pole kidney mass. Renal cell carcinoma is suspected. Radiology recommends a dedicated CT of the abdomen using precontrast, contrast enhanced and delayed images to further evaluate. This can be done as an outpatient. If abnormal patient will require urology evaluation and possible treatment. Recommend to establish care with urology to further evaluate. Recommend follow-up with her PCP to further assist. Patient with chronic pain. At discharge she will continue with her current medications of Lyrica, baclofen, and Suboxone. Recommend to discontinue ibuprofen. Patient with history of vaping. Recommend vaping cessation. Diet: AHA Activity: Ad valdo Followup: Meliton Do DO [Primary Care Provider] - Time spent managing pt's care (in minutes): 55
[2020-10-21 05:55] LABS: BUN Blood Urea Nitrogen 22 mg/dL (7-18); Bicarbonate 27 mmol/L (21-32); Creatine Phosphokinase 55 U/L (26-192); Glucose Level 136 mg/dL (74-106); HDL Cholesterol 60 mg/dL (40-60); LDL Cholesterol, Calculated 116 (<130); Magnesium 2.3 mg/dL (1.8-2.4); Potassium 4.3 mmol/L (3.5-5.1); Sodium Level 140 mmol/L (136-145); Thyroid Stimulating Hormone 0.489 uIU/mL (0.360-3.740); Troponin I < 0.02 ng/mL (0.0-0.045)
[2020-10-21] MEDS: HYDROCODONE/APAP 7.5/325 MG TAB PO PRN (05:57)
[2020-10-21 06:00] LABS: CKMB Creatine Kinase MB < 1.0 ng/mL (1.0-3.6)
[2020-10-21] MEDS ORDERED: PANTOPRAZOLE 40MG TABLET PO SCH (06:30)
--- NOTE | 2020-10-21 08:27 | RAD REPORT ---
EXAM DESCRIPTION: RAD - Chest Pa And Lat (2 Views) - 10/21/2020 5:41 am CLINICAL HISTORY: Follow-up chest pain suspect bronchitis Chest pain. COMPARISON: Chest Single View dated 10/20/2020; Chest Single View dated 02/21/2020; Chest Pa And Lat (2 Views) dated 09/30/2019; Chest Pa And Lat (2 Views) dated 07/03/2019 FINDINGS: The lungs appear grossly clear. The heart is normal in size. No displaced fractures.
[2020-10-21] MEDS ORDERED: AMLODIPINE 5 MG TAB PO SCH (09:00)
[2020-10-21] MEDS ORDERED: ENOXAPARIN 40 MG/0.4 ML SQ SCH (09:00)
[2020-10-21] MEDS ORDERED: ASPIRIN EC 81 MG TAB PO SCH (09:00)
[2020-10-21] MEDS: BACLOFEN 10 MG TAB PO SCH (09:22)
[2020-10-21] MEDS: PREGABALIN 50 MG CAP PO SCH (09:22)
[2020-10-21 09:24] VITALS: BP 113/60
[2020-10-21 09:33] VITALS: O2SAT 94
[2020-10-21 09:38] VITALS: TEMP 97.9
--- NOTE | 2020-10-21 16:31 | EKG ---
Test Date: 2020-10-20 Test Time: 13:19:24 Manufacturing Quality Manager: CHUN MEASUREMENT RESULTS: Intervals: Rate: 58 CT: 190 QRSD: 94 QT: 420 QTc: 412 [place]: P: 34 CT: 190 QRS: 17 T: 37 INTERPRETIVE STATEMENTS: Sinus bradycardia Otherwise normal ECG Compared to ECG 02/21/2020 15:30:19 Sinus rhythm no longer present Electronically Signed On 10-21-20 16:29:51 CDT by Trent Ashley
--- NOTE | 2020-10-21 22:08 | CON ---
Date of Consultation: 10/21/2020 Reason For Consultation: Chest pain. History Of Present Illness: Ms. Nielsen is a 65-year-old woman who has a history of aneurysm, thrombosis, hypertension, came in with chest pain that is anterior. It does not radiate. No nausea , vomiting, PND, orthopnea, pedal edema, palpitation, or syncope. The pain was not exertional. It w as not related to any food or body position or time of the day. No fever. No chills. No cough. Ru led out for an OK already. Past Medical History: As stated above. Allergies: INCLUDE MORPHINE. Review of Systems: Negative. Social History: Negative. Family History: Noncontributory. Medications: At home include amlodipine, Suboxone, baclofen and ibuprofen. Family History: Noncontributory. Social History: Negative. Review of Systems: Negative. Physical Examination: Vital Signs: Stable. She was afebrile. HEENT: Negative. Neck: Supple without lymphadenopathy, JVD or thyromegaly. Chest: Clear to auscultation and percussion. Cardiac: Revealed a regular rhythm and rate. No murmurs, gallops, or rubs. Abdomen: Benign. Extremities: Revealed no clubbing, cyanosis, or edema. Diagnostic Data: A CT scan showed a suspected 14 mm renal cell carcinoma in the upper lobe of the le ft kidney. She also has a suspected 50% stenosis in the proximal right renal artery. EKG was normal . Chest x-ray showed possible infiltrate. Her troponin was negative. Impression And Plan: Atypical chest pain, most likely gastroesophageal reflux disease in nature. Th e patient is on pantoprazole. Her blood pressure is well controlled. they have prioritie s right now and she has a left renal mass consistent with cancer. She needs to be referred to [facility] and/or Urology, and I will discuss the case further with Dr. Gregorio. She has had a workup in my o ffice at that time that was unremarkable. I will see her in the office soon after discharge just in case she needs cardiac clearance. Thus for now I am comfortable with her going home. KARINA/OKSANA Voice ID: [id number] Report ID: [id number]
[2020-10-21] MEDS ORDERED: FAMOTIDINE 20 MG/2 ML VIAL IV ONE (23:36)
--- NOTE | 2020-10-22 08:29 | ECHO ---
HEIGHT: 5 ft 7 in WEIGHT: 129 lb 3.2 oz DATE OF STUDY: 10/21/[address]: Eladio Gregorio DO 2-DIMENSIONAL: YES M.MODE: YES DOPPLER: YES COLOR FLOW: YES TDS: NO PORTABLE: NO DEFINITY: NO BUBBLE STUDY: NO DIAGNOSIS: CHEST PAIN, HYPERTENSION CARDIAC HISTORY: CATHERIZATION: NO SURGERY: NO PROSTHETIC VALVE: NO PACEMAKER: NO MEASUREMENTS (cm) DIASTOLIC (NORMALS) SYSTOLIC (NORMALS) IVSd 1.1 (0.6-1.2) LA Diam 2.6 (1.9-4.0) LVEF 50% LVIDd 3.5 (3.5-5.7) LVIDs 2.6 (2.0-3.5) %FS 25% LVPWd 1.0 (0.6-1.2) Ao Diam 2.3 (2.0-3.7) 2 DIMENSIONAL ASSESSMENT: RIGHT ATRIUM: NORMAL LEFT ATRIUM: NORMAL RIGHT VENTRICLE: NORMAL LEFT VENTRICLE: NORMAL TRICUSPID VALVE: NORMAL MITRAL VALVE: NORMAL PULMONIC VALVE: NORMAL AORTIC VALVE: NORMAL PERICARDIAL EFFUSION: NONE AORTIC ROOT: NORMAL LEFT VENTRICULAR WALL MOTION: NORMAL DOPPLER/COLOR FLOW: NORMAL COMMENTS: NORMAL 2D ECHOCARDIOGRAM WITH DOPPLER. NO WALL MOTION ABNORMALITY. NO EFFUSION. TECHNOLOGIST: Jina GRESHAM
== END 2020-10-21 11:52 | disposition home or self-care (01) ==
LOC: ER 12:27 → ERHOLD 17:05 → 2ND 19:34
PROVIDERS: ADMIT Family Medicine; ATTEND Family Medicine
DX: R07.89 Other chest pain (principal); I10 Essential (primary) hypertension; R93.422 Abnormal radiologic findings on diagnostic imaging of left kidney; G89.29 Other chronic pain; E78.5 Hyperlipidemia, unspecified; F41.9 Anxiety disorder, unspecified; Z20.822 Contact with and (suspected) exposure to COVID-19; F17.290 Nicotine dependence, other tobacco product, uncomplicated
CPT/HCPCS: 36415; 71045; 71046; 71275; 74175; 80048; 80061; 80076; 82550; 82553; 83735; 83880; 84439; 84443; 84484; 85025; 85610; 93005; 93306; 96374; 96375; 99285; G0378; J1170; J1650; J2405; J2920; J3010; Q9967; U0003

== ENCOUNTER 2020-11-20 14:33 | Emergency (ER) | payer OTHER ==
--- OUTSIDE RECORDS SUMMARY | 2020-11-20 14:35 | XMS REPORT | Continuity of Care Document ---
:1955 Author Organization [facility] t Address [address] [place] [address] Care Team Providers Name Role Phone Edson [...] 2019-11-15 2019-11-15 [facility] [id number] 06:16:04 10:45:00 Encounter Scar Oscar [id number] [place] [id number] Surgical [phone] [place] 071 2019-11-15 2019-11-15 Telephone [facility] [id number] 00:00:00 00:00:00 Scar Oscar [id number] [place] [id number] [place] [phone] 353 2019-11-14 2019-11-14 Laboratory Only, [facility] [id number] 13:05:16 13:20:16 Only Test Dayne [id number] [place] [id number] [place] [phone] 353 2019-11-14 2019-11-14 Orders Doctor JOSE [id number] 00:00:00 00:00:00 Only Unassigned, DIO [id number] [place] [phone] [id number] 2019-07-09 2019-07-09 [employer]age As[employer]er Irving Rosen [facility] [id number] 17:15:08 17:30:08 Visit Lab Main Dayne [id number] [place] [id number] [facility] [phone] [address] 2019-07-09 2019-07-09 Orders Doctor JOSE [id number] 00:00:00 00:00:00 Only Unassigned, DIO [id number] [place] [id number] [id number] Results This patient has no known results.
[2020-11-20 16:17] LABS: Absolute Lymphocytes (CBC) 0.6 K/uL (0.7-4.9); Basophils % 0.6 % (0-1.3); Hematocrit 30.3 % (36.0-45.0); Lymphocytes % 25.4 % (15.3-44.8); MPV 8.3 fL (7.6-11.3); RBC Red Blood Cell Count 3.47 M/uL (3.86-4.86)
[2020-11-20 16:38] LABS: ALT/SGPT 27 U/L (12-78); AST/SGOT 33 U/L (15-37); Albumin 2.7 g/dL (3.4-5.0); Alkaline Phosphatase 65 U/L (45-117); BUN Blood Urea Nitrogen 14 mg/dL (7-18); Bicarbonate 20 mmol/L (21-32); Bilirubin Direct < 0.1 mg/dL (0-0.2); Bilirubin Total 0.2 mg/dL (0.2-1.0); Glucose Level 75 mg/dL (74-106); Lipase 295 U/L (73-393); Protein, Total 5.8 g/dL (6.4-8.2); Sodium Level 140 mmol/L (136-145)
[2020-11-20 16:43] LABS: Potassium 2.3 mmol/L (3.5-5.1)
[2020-11-20] MEDS ORDERED: POTASSIUM 25 MEQ EFFERV TAB ONE ×2 (17:10→18:02)
[2020-11-20] MEDS ORDERED: NA CHLORIDE 0.9% 1,000 ML ONE (17:37)
[2020-11-20] MEDS ORDERED: ONDANSETRON 4 MG/2 ML VIAL ONE (17:37)
[2020-11-20] MEDS ORDERED: KCL 20 MEQ/100 mL IVPB 20 MEQ/100 ML BAG IV ONE (17:37)
--- NOTE | 2020-11-20 17:48 | RAD REPORT ---
EXAM DESCRIPTION: RAD - Chest Single View - 11/20/2020 5:17 pm CLINICAL HISTORY: COUGH COMPARISON: No comparisonsChest Pa And Lat (2 Views) dated 10/21/2020; Chest Single View dated 021; Chest Single View dated 02/21/2020; Chest Pa And Lat (2 Views) dated 09/30/2019 FINDINGS: Patchy bilateral interstitial and airspace opacities, worse at the right lung base. The h eart size is within normal limits.No acute osseous abnormality. No significant pleural effusions or p neumothorax. IMPRESSION: Mild bilateral interstitial and airspace disease concerning for pneumonia.
[2020-11-20 18:14] LABS: Blood Morphology Comment NOT SEEN (NOT SEEN); Platelet Estimate ADEQ; White Blood Cell Scan OK (OK)
--- NOTE | 2020-11-20 18:37 | ER ---
Nurse's Notes [facility] [place] Name: Fahad Nielsen Age: 65 yrs Sex: Female : 1955 Arrival Date: 11/20/2020 Time: 14:34 Bed 2 Private MD: Meliton Do Diagnosis: Coronavirus infection, unspecified;Viral pneumonia, unspecified;Hypokalemia Presentation: 11/20 15:40 Chief complaint: Patient states: diarrhea, fever, vomiting, fatigue since 11/16. kg Coronavirus screen: Client denies travel out of the [place] in the last 14 days. At this time, unable to obtain information related to travel outside the [place] Client presents with at least one sign or symptom that may indicate coronavirus-19. Standard/surgical mask placed on the client. Provider contacted for isolation considerations. Ebola Screen: Patient negative for fever greater than or equal to 101.5 degrees Fahrenheit, and additional compatible Ebola Virus Disease symptoms Patient denies exposure to infectious person. Patient denies travel to an Ebola-affected area in the 21 days before illness onset. Initial Sepsis Screen: Does the patient meet any 2 criteria? No. Patient's initial sepsis screen is negative. Does the patient have a suspected source of infection? No. Patient's initial sepsis screen is negative. Risk Assessment: Do you want to hurt yourself or someone else? Patient reports no desire to harm self or others. Onset of symptoms was November 16, 2020. 15:40 Method Of Arrival: EMS: [facility] kg 15:40 Acuity: MOOKIE 3 kg Triage Assessment: 15:42 General: Appears in no apparent distress. Behavior is calm, cooperative, appropriate kg for age, quiet. Pain: Complains of pain in back and abdomen Pain currently is 8 out of 10 on a pain scale. at worst was 10 out of 10 on a pain scale. level that patient reports is acceptable is 5 out of 10 on a pain scale. GI: Reports diarrhea, nausea, vomiting. Historical: - Allergies: 15:44 Morphine; kg - PMHx: 15:44 Kidney CA; strokes; Hypertension; Aneurysm; DVT; kg - PSHx: 15:44 section; Tubal; kg - Immunization history:: Adult Immunizations up to date, Client reports having NOT received the Covid vaccine. - Social history:: Smoking status: Reported history of juuling and/or vaping. Screenin:42 Abuse screen: Denies threats or abuse. Denies injuries from another. Nutritional kg screening: No deficits noted. Tuberculosis screening: No symptoms or risk factors identified. Fall Risk None identified. Fall in past 12 months (25 points). No secondary diagnosis (0 pts). IV access (20 points). Ambulatory Aid- None/Bed Rest/Nurse Assist (0 pts). Gait- Weak (10 pts.). Mental Status- Oriented to own ability (0 pts). Total Canales Fall Scale indicates Low Risk Score (25-44 pts). Fall prevention measures have been instituted. Side Rails Up X 2 Placed close to Nursing Station Frequent Obs/Assesments occuring As available Patient and Family Educated on Fall Prevention Program and strategies. Assessment: 17:20 General: Appears in no apparent distress. comfortable, slender, well developed, sv Behavior is calm, cooperative, appropriate for age. General: Reports fever for 2-3 days, feeling ill for 2-3 days, fatigue for 2-3 days. Pain: Denies pain. Neuro: Level of Consciousness is awake, alert, obeys commands, Oriented to person, place, time, situation, Moves all extremities. Full function. Respiratory: Airway is patent Respiratory effort is even, unlabored, Respiratory pattern is regular, symmetrical. GI: Abdomen is flat, Reports diarrhea, nausea, vomiting. Derm: Skin is normal. 17:50 Reassessment: Patient appears in no apparent distress at this time. Patient and/or sv family updated on plan of care and expected duration. Pain level reassessed. Patient is alert, oriented x 3, equal unlabored respirations, skin warm/dry/pink. Patient states feeling better. Patient states symptoms have improved. 18:57 Reassessment: Pt up for discharge but waiting for IV potassium to complete. sv Vital Signs: 15:40 BP 126 / 68; Pulse 93; Resp 20; Temp 98.7(TE); Pulse Ox 97% on R/A; Weight 58.97 kg kg (R); Height 5 ft. 7 in. (170.18 cm) (R); Pain 8/10; 17:43 BP 112 / 66; Pulse 75; Resp 16; Pulse Ox 97% on R/A; sv 18:27 BP 123 / 70; Pulse 81; Resp 16; Pulse Ox 99% ; sv 15:40 Body Mass Index 20.36 (58.97 kg, 170.18 cm) kg ED Course: 14:34 Patient arrived in ED. am2 14:34 Meliton Do DO is Private Physician. am2 15:42 Triage completed. kg 15:43 Arm band placed on right wrist. kg 16:20 Luisa Ramirez FNP-C is [facility]. kb 16:20 Geronimo Lee MD is Attending Physician. kb 16:41 Mica Gonzáles, RN is Primary Nurse. sv 17:17 Chest Single View XRAY In Process Unspecified. EDMS 17:20 Patient has correct armband on for positive identification. Bed in low position. Call sv light in reach. Side rails up X 1. Pulse ox on. NIBP on. Door closed. Warm blanket given. Head of bed elevated. 17:20 Maintain EMS IV. Dressing intact. Site clean \T\ dry. Gauge \T\ site: 22G R FA. sv 19:05 Primary Nurse role handed off by Mica Gonzáles, RN sv 19:05 Report given to Josue RN and Shamar RN. sv Administered Medications: 17:00 CANCELLED (Physician Discretion): NS 0.9% with KCl 40 mEq/L 1000 ml IV at calculated kb rate continuous 17:20 Drug: NS 0.9% 1000 ml Route: IV; Rate: 1000 ml; Site: right forearm; sv 17:20 Drug: Zofran (Ondansetron) 4 mg Route: IVP; Site: right forearm; sv 17:50 Follow up: Response: No adverse reaction sv 17:22 Drug: Potassium Chloride 20 mEq Route: IV; Rate: calculated rate; Site: right forearm; sv 17:50 Drug: Potassium Effervescent Tablet 50 mEq Route: PO; sv Outcome: 18:37 Discharge ordered by MD. kb 18:59 Discharged to home ambulatory. sv 18:59 Condition: stable 18:59 Discharge instructions given to patient, Instructed on discharge instructions, follow up and referral plans. medication usage, Demonstrated understanding of instructions, follow-up care, medications, Prescriptions given X 1. 19:28 Patient left the ED. jb4 Signatures: Dispatcher [employer] EDHI Luisa Ramirez FNP-C F[employer] SERVICE VENDING DRIVER-Mica Romo, RN RN Michael Roman RN RN jb4 Britt Vieyra am2 Nikole Aguilera, RN RN kg Corrections: (The following items were deleted from the chart) 18:30 17:50 Reassessment: Patient appears in no apparent distress at this time. No changes sv from previously documented assessment. Patient and/or family updated on plan of care and expected duration. Pain level reassessed. Patient is alert, oriented x 3, equal unlabored respirations, skin warm/dry/pink. sv
--- NOTE | 2020-11-20 18:37 | EDPHYS ---
Physician Documentation [facility] Name: Fahad Nielsen Age: 65 yrs Sex: Female : 1955 Arrival Date: 11/20/2020 Time: 14:34 Bed 2 Private MD: Hi [facility] ED Physician Geronimo Lee HPI: 11/20 18:33 This 65 yrs old Female presents to ER via EMS with complaints of Fever, kb General Weakness, Vomiting/Diarrhea. 18:33 The patient or guardian reports cough, that is intermittent, described as mild, flu kb symptoms, low-grade fever, myalgias, no appetite. Onset: The symptoms/episode began/occurred 1 week(s) ago. Severity of symptoms: At their worst the symptoms were moderate, in the emergency department the symptoms are unchanged. Modifying factors: The symptoms are alleviated by nothing, the symptoms are aggravated by nothing. Associated signs and symptoms: Pertinent positives: diarrhea, fever, nausea, vomiting. The patient has not experienced similar symptoms in the past. The patient has not recently seen a physician. Patient reports malaise fatigue cough congestion nausea vomiting diarrhea fever and chills that started a week ago. Started having muscle cramps yesterday. . Historical: - Allergies: 15:44 Morphine; kg - PMHx: 15:44 Kidney CA; strokes; Hypertension; Aneurysm; DVT; kg - PSHx: 15:44 section; Tubal; kg - Immunization history:: Adult Immunizations up to date, Client reports having NOT received the Covid vaccine. - Social history:: Smoking status: Reported history of juuling and/or vaping. ROS: 18:31 Cardiovascular: Negative for chest pain, palpitations, and edema. kb 18:31 Constitutional: Positive for body aches, chills, fatigue, fever, malaise. 18:31 ENT: Positive for sinus congestion. 18:31 Respiratory: Positive for cough, Negative for dyspnea on exertion, hemoptysis, orthopnea, pleurisy, shortness of breath, sputum production, wheezing. 18:31 Abdomen/GI: Positive for nausea, vomiting, and diarrhea, Negative for abdominal pain. 18:31 All other systems are negative. Exam: 18:32 Constitutional: This is a well developed, well nourished patient who is awake, alert, kb and in no acute distress. Head/Face: Normocephalic, atraumatic. ENT: Moist Mucous membranes Cardiovascular: Regular rate and rhythm with a normal S1 and S2. No gallops, murmurs, or rubs. No pulse deficits. Respiratory: Respirations even and unlabored. No increased work of breathing, no retractions or nasal flaring. Abdomen/GI: Soft, non-tender. No distention Skin: Warm, dry with normal turgor. Normal color. MS/ Extremity: Pulses equal, no cyanosis. Neurovascular intact. Full, normal range of motion. Neuro: Awake and alert, GCS 15, oriented to person, place, time, and situation. Moves all extremities. Normal gait. Psych: Awake, alert, with orientation to person, place and time. Behavior, mood, and affect are within normal limits. Vital Signs: 15:40 BP 126 / 68; Pulse 93; Resp 20; Temp 98.7(TE); Pulse Ox 97% on R/A; Weight 58.97 kg kg (R); Height 5 ft. 7 in. (170.18 cm) (R); Pain 8/10; 17:43 BP 112 / 66; Pulse 75; Resp 16; Pulse Ox 97% on R/A; sv 18:27 BP 123 / 70; Pulse 81; Resp 16; Pulse Ox 99% ; sv 15:40 Body Mass Index 20.36 (58.97 kg, 170.18 cm) kg MDM: 16:37 Patient medically screened. kb 18:29 Data reviewed: vital signs, nurses notes. Data interpreted: Pulse oximetry: on room air kb is 99 %. Interpretation: normal. Counseling: I had a detailed discussion with the patient and/or guardian regarding: the historical points, exam findings, and any diagnostic results supporting the discharge/admit diagnosis, lab results, the need for outpatient follow up, a family practitioner, to return to the emergency department if symptoms worsen or persist or if there are any questions or concerns that arise at home. 11/20 14:37 Order name: Flu; Complete Time: 16:25 kb 11/20 15:52 Order name: Basic Metabolic Panel; Complete Time: 16:45 kb 11/20 15:52 Order name: CBC with Diff; Complete Time: 18:29 kb 11/20 15:52 Order name: Hepatic Function; Complete Time: 16:45 kb 11/20 15:52 Order name: Lipase; Complete Time: 16:45 kb 11/20 16:55 Order name: SARS-COV-2 RT PCR; Complete Time: 16:55 EDMS 11/20 16:57 Order name: Chest Single View XRAY; Complete Time: 17:49 kb 11/20 18:14 Order name: CBC Smear Scan; Complete Time: 18:29 EDMS 11/20 15:52 Order name: IV Saline Lock; Complete Time: 16:43 kb 11/20 15:52 Order name: Labs collected and sent; Complete Time: 16:43 kb 11/20 18:35 Order name: PO challenge; Complete Time: 18:37 kb Administered Medications: 17:00 CANCELLED (Physician Discretion): NS 0.9% with KCl 40 mEq/L 1000 ml IV at calculated kb rate continuous 17:20 Drug: NS 0.9% 1000 ml Route: IV; Rate: 1000 ml; Site: right forearm; sv 17:20 Drug: Zofran (Ondansetron) 4 mg Route: IVP; Site: right forearm; sv 17:50 Follow up: Response: No adverse reaction sv 17:22 Drug: Potassium Chloride 20 mEq Route: IV; Rate: calculated rate; Site: right forearm; sv 17:50 Drug: Potassium Effervescent Tablet 50 mEq Route: PO; sv Disposition Summary: 11/20/20 18:37 Discharge Ordered Location: Home kb Condition: Stable kb Diagnosis - Coronavirus infection, unspecified kb - Viral pneumonia, unspecified kb - Hypokalemia kb Followup: kb - With: Emergency Department - When: As needed - Reason: Worsening of condition Followup: kb - With: Private Physician - When: 2 - 3 days - Reason: Recheck today's complaints, Continuance of care, Re-evaluation by your physician Discharge Instructions: - Discharge Summary Sheet kb - Hypokalemia kb - COVID-19 kb Forms: - Medication Reconciliation Form kb - Thank You Letter kb - Antibiotic Education kb - Prescription Opioid Use kb Prescriptions: - Zofran 4 mg Oral Tablet - take 1 tablet by ORAL route every 6 hours As needed; 20 tablet; Refills: 0, kb Product Selection Permitted Addendum: 11/22/2020 17:09 Co-signature as Attending Physician, Geronimo boothe a2 Signatures: Dispatcher [employer] EDMS Luisa Ramirez, CANDYC TREASURY REPRESENTATIVE-Mica Romo, RN RN sv Geronimo Lee MD MD [facility] Nikole Aguilera, PARDEEP RN kg Corrections: (The following items were deleted from the chart) 11/20 16:11 14:38 CORONAVIRUS+ ordered. EDMS EDMS 17:00 17:00 NS 0.9% with KCl 40 mEq/L 1000 ml IV at calculated rate continuous ordered. kb kb
[2020-11-20 19:57] VITALS: TEMP 98.7
[2020-11-20 20:00] VITALS: BP 123/70; O2SAT 99
== END 2020-11-20 19:28 | disposition home or self-care (01) ==
LOC: ER 14:33
DX: U07.1 COVID-19 (principal); J12.9 Viral pneumonia, unspecified; E87.6 Hypokalemia; I10 Essential (primary) hypertension; Z88.5 Allergy status to narcotic agent; Z86.718 Personal history of other venous thrombosis and embolism
CPT/HCPCS: 85025; 80048; 36415; 80076; 83690; 87804 ×2; 71045; 96375; 96374; 99284; U0003; J3480; J7030; J2405

== ENCOUNTER 2021-07-29 18:50 | Observation (INO) | payer OTHER ==
--- NOTE | 2021-07-29 19:35 | RAD REPORT ---
EXAM DESCRIPTION: CT - Facial Bones W/ Mpr - 07/29/2021 7:22 pm CLINICAL HISTORY: Fall, facial trauma COMPARISON: None. TECHNIQUE: Axial 2 millimeter thick images of the facial bones were obtained with sagittal and coron al reconstruction imaging. All CT scans are performed using dose optimization technique as appropriate and may include automated exposure control or mA/KV adjustment according to patient size. FINDINGS: No fracture of the mandible identified. Condyles are normally positioned in each glenoid f becky. The mastoid air cells are clear with no skullbase fracture. No middle ear abnormality seen. Nasal bone fractures are present in the midline and right lateral aspects. 1 millimeter right lateral displacement of the fracture fragment seen. Right deviation the nasal septum is present without iden tifiable septum fracture. No other facial bone fractures seen. No globe or orbital content abnormality seen. No acute paranasal sinus finding. Patient is edentulous. No acute mandible or maxilla finding seen. No foreign body or significant soft tissue abnormality seen. IMPRESSION: Nasal bone fractures with very minimal 1 millimeter right lateral displacement.
--- NOTE | 2021-07-29 19:39 | RAD REPORT ---
EXAM DESCRIPTION: CT - CTHCSPWOC - 07/29/2021 7:22 pm CLINICAL HISTORY: fall, facial trauma, head and neck injury COMPARISON: CT HEAD CSPINE MPR WO CONTRAST dated 09/10/2013 TECHNIQUE: Axial 5 mm thick images of the head were obtained. Axial 2 mm thick images of the cervic al spine were obtained with sagittal and coronal reconstruction images generated and reviewed. All CT scans are performed using dose optimization technique as appropriate and may include automated exposure control or mA/KV adjustment according to patient size. FINDINGS: No intracranial hemorrhage, mass, edema or acute intracranial finding. No cortical infarct ion. No cortical edema or sulcal effacement. There is a large area of gliosis involving the left fron rodo and parietal lobes. Smaller area of gliosis is present in the right frontal lobe. These areas mat ch the 2013 study. No new or progressive volume loss findings. No new extra-axial fluid collection. V entricles are normal. Mastoid air cells are clear. Minimal height loss in the C4 and C5 bodies noted similar to comparison. No acute compression fractur e or acute vertebral body finding seen. Reversal of the usual cervical lordosis is present with the a pex at the C4-5 disc level. There is slight retrolisthesis of C5 on C6. These are stable findings trisha k to 2013. Significant C4-5 and C5-6 disc space narrowing with more moderate C3-4 and C6-7 disc space narrowing. Endplate spurring changes are seen spanning C3-C7. Facet joint degenerative changes are p resent. No facet joint alignment abnormality. No fracture or acute bony abnormality. No pathologic portillo ne process. Central canal detail is inherently limited. No paraspinal mass or hematoma. IMPRESSION: CT head examination shows no acute intracranial finding. Nonacute findings are detailed in the body of the report. Advanced for age cervical spine degenerative changes are present without an acute finding. No measura ble change from 2014. Orbits, facial bones and sinuses are detailed in separate CT facial bone report.
[2021-07-29 19:49] LABS: Absolute Lymphocytes (CBC) 1.4 K/uL (0.7-4.9); Hematocrit 37.4 % (36.0-45.0); Lymphocytes % 12.4 % (15.3-44.8); MPV 8.2 fL (7.6-11.3); RBC Red Blood Cell Count 4.35 M/uL (3.86-4.86)
[2021-07-29 20:02] LABS: Potassium 4.3 mmol/L (3.5-5.1)
[2021-07-29] MEDS ORDERED: FENTANYL CITR 100 MCG/2 ML ONE (20:21)
--- NOTE | 2021-07-29 21:18 | RAD REPORT ---
EXAM DESCRIPTION: CT - Chest Abdomen Pelvis W Cont - 07/29/2021 8:57 pm CLINICAL HISTORY: FALL, chest pain, abdomen pain, right-sided rib pain COMPARISON: <Comparisons> TECHNIQUE: Following dynamic enhancement using 100 milliliters nonionic IV contrast, axial imaging o f the chest, abdomen and pelvis was performed. Biphasic technique was utilized through the abdomen. No oral contrast was administered. All CT scans are performed using dose optimization technique as appropriate and may include automated exposure control or mA/KV adjustment according to patient size. FINDINGS: No dense mass consolidation. Trace amounts of airspace opacification are present in the an terior aspect of the right middle lobe. This is a very minimal finding. No pleural effusion, pleural thickening or pneumothorax. No significant aortic or pulmonary arterial tree finding. Mediastinal and hilar regions show no mass or abnormal lymphadenopathy. No chest wall mass or axillary lymphadenopat hy. No displaced rib fractures are present. There is no definitive rib fracture seen. There is slight cortical angulation involving the the third, fifth and sixth ribs. Incomplete fracture is possible. The small airspace opacities are close to these rib changes and could be minimal contusion. The liver, spleen and pancreas show no suspicious findings. A few small hepatic cysts are present. No gallbladder or biliary tree abnormality. Gallstones can be occult on CT imaging. Symmetric renal fun ction is seen with no mass or hydronephrosis. No adrenal abnormalities. Small bilateral renal cysts a re present. No dilated bowel loops or focal bowel wall thickening. Moderate stool volume is seen in the nondilate d colon. There is prominent sigmoid diverticulosis but no diverticulitis findings. Disc and bone degenerative changes are present. No vertebral body compression fractures. No fracture s of sternum. No significant vascular findings. IMPRESSION: The anterior right third, fifth and sixth ribs show slight cortical angulation that is n ot typically seen. A definitive fracture line is not identified. In the right middle lobe near these ribs are minimal punctate areas of airspace opacification possibl y minimal pulmonary contusion. Infiltrate is lesser in likelihood given the trauma setting. There is no pneumothorax or pleural fluid collection. No other significant CT chest finding. There are no acute abdominal or pelvic findings.
[2021-07-29] MEDS ORDERED: MEPERIDINE HCL 25 MG/ML SYR ONE (21:26)
--- NOTE | 2021-07-29 21:37 | RAD REPORT ---
EXAM DESCRIPTION: RAD - Hip Left 2 View - 07/29/2021 9:26 pm CLINICAL HISTORY: fall;Pain COMPARISON: Chest Abdomen Pelvis W Cont dated 07/29/2021 FINDINGS: AP and frogleg views of the left hip were obtained. There is no fracture or dislocation. No acute or destructive bony process seen. SI joint degenerativ e changes are present [id number] in severity. Patient has advanced for age degenerative change in the lower lumbar spine only partially imaged. No soft tissue abnormality. IMPRESSION: Negative left hip examination for acute or significant findings.
--- NOTE | 2021-07-29 22:56 | EDPHYS ---
Physician Documentation [facility] Name: Fahad Nielsen Age: 66 yrs Sex: Female : 1955 Arrival Date: 07/29/2021 Time: 18:53 Bed 23 Private MD: Hi [facility] ED Physician Chuy Garcia HPI: 07/29 19:10 This 66 yrs old Female presents to ER via Wheelchair with complaints of Fall Injury, cp FACE. 19:10 Details of fall: The patient fell from an upright position, while walking, and struck cp struck furniture in home. Onset: The symptoms/episode began/occurred today. Associated injuries: The patient sustained injury to the head, laceration, of the forehead. Severity of symptoms: in the emergency department the symptoms have improved, mildly. Patient reports becoming dizzy and losing balance that caused her to fall and strike face against furniture in home. Reported unknown duration of LOC. Historical: - Allergies: 19:00 Morphine; ap3 - PMHx: 19:00 Aneurysm; DVT; Hypertension; kidney CA; Strokes; ap3 - PSHx: 19:00 section; tubal; ap3 - Immunization history:: Adult Immunizations up to date, Client reports having NOT received the Covid vaccine. Last tetanus immunization: up to date < 5 years ago Flu vaccine is up to date. - Social history:: Smoking status: unknown. ROS: 19:15 Constitutional: Negative for body aches, chills, fever, poor PO intake. cp 19:15 Eyes: Negative for injury, pain, redness, and discharge. cp 19:15 Neck: Negative for pain with movement, pain at rest, stiffness. 19:15 Cardiovascular: Negative for chest pain, edema, palpitations. 19:15 Respiratory: Negative for cough, shortness of breath, wheezing. 19:15 Abdomen/GI: Negative for abdominal pain, vomiting, diarrhea, constipation. 19:15 Neuro: Positive for loss of consciousness, Negative for altered mental status, seizure activity, syncope. 19:15 All other systems are negative. Exam: 19:20 Constitutional: The patient appears in no acute distress, alert, awake, cp non-diaphoretic, non-toxic, well developed, well nourished, uncomfortable. 19:20 Head/face: Noted is deformity, of the nose, a laceration(s), that is deep, of the cp left forehead. 19:20 Eyes: Periorbital structures: appear normal, Pupils: equal, round, and reactive to light and accomodation, Extraocular movements: intact throughout, Conjunctiva: normal, no exudate, no injection, Sclera: no appreciated abnormality, Lids and lashes: appear normal, bilaterally. 19:20 ENT: External ear(s): are unremarkable, Ear canal(s): are normal, clear, TM's: dullness, bilaterally, Nose: External nose: contusion is noted, deformity is noted, bridge of nose, Nasal septum: deviates to the left, bleeding, is noted from both nares, and is minimal, no septal hematoma is appreciated, Mouth: Lips: moist, Oral mucosa: moist, Posterior pharynx: Airway: no evidence of obstruction, patent. 19:20 Neck: C-spine: C-collar placed in ED. 19:20 Chest/axilla: Inspection: normal, Palpation: crepitus, is not appreciated, tenderness, of the left lateral posterior chest, right lateral posterior chest, left lateral anterior chest and right lateral anterior chest. 19:20 Cardiovascular: Rate: normal, Rhythm: regular, Edema: is not appreciated, JVD: is not appreciated. 19:20 Respiratory: the patient does not display signs of respiratory distress, Respirations: normal, no use of accessory muscles, no retractions, labored breathing, is not present, Breath sounds: are clear throughout, no decreased breath sounds, no stridor, no wheezing. 19:20 Abdomen/GI: Inspection: abdomen appears normal, Bowel sounds: active, all quadrants, Palpation: abdomen is soft and non-tender, in all quadrants. 19:20 Back: vertebral tenderness, is not appreciated. 19:20 Musculoskeletal/extremity: Exam is negative for decreased range of motion, deformity. 19:20 Neuro: Orientation: to person, place \T\ time. Mentation: able to follow commands, slow to respond, Motor: moves all fours, strength is normal, Sensation: no obvious gross deficits. 07/30 00:31 ECG was reviewed by the Attending Physician. cp Vital Signs: 07/29 19:31 BP 130 / 62; Pulse 77; Temp 98; Pulse Ox 100% ; Weight 51.26 kg; Height 5 ft. 6 in. ap3 (167.64 cm); Pain 6/10; 19:45 BP 110 / 61 LA (man/reg); Pulse 73 MON; Resp 20 S; Pulse Ox 100% on R/A; Pain 6/10; ag7 20:00 BP 118 / 62 LA (man/reg); Pulse 73 MON; Resp 20 S; Pulse Ox 100% on R/A; Pain 6/10; ag7 20:15 BP 120 / 57 LA Supine (man/reg); Pulse 62 MON; Resp 20 S; Pulse Ox 100% ; Pain 6/10; ag7 20:30 BP 135 / 60 LA Supine (auto/reg); Pulse 60 MON; Resp 20 S; Pulse Ox 100% on R/A; Pain ag7 6/10; 20:54 Pain 6/10; ag7 21:07 BP 125 / 52 LA (auto/reg); Pulse 72 MON; Resp 16 S; Pulse Ox 100% on R/A; Pain 6/10; ag7 21:15 BP 134 / 58; Pulse 71; Resp 16; Pulse Ox 100% on R/A; Pain 6/10; ag7 21:30 BP 125 / 57; Pulse 79; Resp 16 S; Pulse Ox 96% on R/A; Pain 6/10; ag7 21:45 BP 126 / 43; Pulse 65; Resp 16 S; Pulse Ox 97% on R/A; Pain 2/10; ag7 22:00 Pain 2/10; ag7 23:45 BP 124 / 43; Pulse 60; Resp 16; Pulse Ox 97% ; Pain 2/10; ag7 23:45 BP 117 / 64; Pulse 69; Resp 16; Pulse Ox 98% on R/A; Pain 2/10; ag7 04/01 00:45 BP 96 / 51 LA Supine (auto/reg); Pulse 70 LA; Resp 16 S; Pulse Ox 98% on R/A; Pain 3/10;ag7 02:00 BP 114 / 79 LA Supine (auto/reg); Pulse 92 MON; Resp 16 S; Pulse Ox 98% on R/A; Pain ag7 6/10; 07/29 19:31 Body Mass Index 18.24 (51.26 kg, 167.64 cm) ap3 Abiodun Coma Score: 07/29 20:30 Eye Response: spontaneous(4). Verbal Response: confused(4). Motor Response: obeys ag7 commands(6). Total: 14. 22:04 Eye Response: spontaneous(4). Verbal Response: oriented(5). Motor Response: obeys ag7 commands(6). Total: 15. Trauma Score (Adult): 21:01 Eye Response: spontaneous(1); Verbal Response: confused(1); Motor Response: obeys ag7 commands(2); Systolic BP: > 89 mm Hg(4); Respiratory Rate: 10 to 29 per min(4); [place] Score: 14; Trauma Score: 12 Laceration: 07/30 00:05 Wound Repair of 4cm ( 1.6in ) subcutaneous laceration to forehead. Linear shaped.. cp Distal neuro/vascular/tendon intact. Anesthesia: Wound infiltrated with 5 mls of 1% lidocaine w/ Epi. Wound prep: Simple cleansing by me. Skin closed with 8 6-0 Prolene using interrupted sutures and sterile technique. Dressed with Bacitracin, 4x4's. Patient tolerated well. MDM: 07/29 19:33 Patient medically screened. cp 22:20 Data reviewed: vital signs, nurses notes, lab test result(s), radiologic studies, CT cp scan, plain films. 22:20 Test interpretation: by ED physician or midlevel provider: plain radiologic studies. cp Counseling: I had a detailed discussion with the patient and/or guardian regarding: the historical points, exam findings, and any diagnostic results supporting the discharge/admit diagnosis, lab results, radiology results. Response to treatment: the patient's symptoms have markedly improved after treatment, and as a result, I will admit patient. 22:50 Physician consultation: Thaddeus Kwong MD was called at 22:50, was contacted at 22:50, cp regarding admission, to the telemetry unit. patient's condition, and will see patient in ED. 23:02 Physician consultation: Elle Briceno MD was called at 23:03, was contacted at 23:03, cp regarding patient's condition, outpatient follow-up, next week, 08-03-2021. 07/29 19:02 Order name: Basic Metabolic Panel; Complete Time: 20:04 cp 07/29 20:04 Interpretation: Normal except: BUN 39; GFR 49. cp 07/29 19:02 Order name: CBC with Diff; Complete Time: 20:04 cp 07/29 20:16 Interpretation: Normal except: WBC 11.0; RDW 15.6; MARVIN% 76.4; LYM% 12.4; NEUT A 8.4. cp 07/29 19:02 Order name: Type And Screen 07/29 22:35 Order name: Troponin High Sensitivity cp 07/30 03:47 Order name: Troponin High Sensitivity EDID 07/30 03:55 Order name: CBC with Automated Diff EDMS 07/30 03:55 Order name: CBC with Automated Diff EDMS 07/30 03:55 Order name: CBC with Automated Diff EDMS 07/30 03:55 Order name: CBC with Automated Diff EDMS 07/30 03:55 Order name: Comprehensive Metabolic Panel EDID 07/30 03:55 Order name: Comprehensive Metabolic Panel EDID 07/30 03:55 Order name: Comprehensive Metabolic Panel EDID 07/30 03:55 Order name: Comprehensive Metabolic Panel EDID 07/30 03:55 Order name: Creatine Phosphokinase [facility] 07/29 19:01 Order name: CT Facial Bones W/O Con; Complete Time: 20:04 07/29 19:17 Order name: Head C Spine Mpr Wo Con; Complete Time: 20:04 EDID 07/29 19:18 Order name: Chest Abdomen Pelvis W Cont; Complete Time: 22:11 [facility] 07/29 20:25 Order name: XRAY Hip LEFT 2 view; Complete Time: 22:11 07/29 22:35 Order name: EKG; Complete Time: 03:47 07/30 03:55 Order name: CONS Physician Consult EDID 07/30 03:55 Order name: Creatine Phosphokinase [facility] 07/29 19:01 Order name: C-Collar; Complete Time: 19:36 rn 07/29 19:02 Order name: Labs collected and sent; Complete Time: 19:43 cp 07/29 20:27 Order name: Wound Care: please clean and irrigate wound; Complete Time: 21:13 cp 07/29 22:35 Order name: EKG - Nurse/Tech; Complete Time: 00:36 cp 07/29 22:36 Order name: Dressing - Wound; Complete Time: 00:36 cp 07/29 22:36 Order name: Gloves, Sterile; Complete Time: 00:19 cp 07/29 22:36 Order name: Setup Suture Tray; Complete Time: 00:19 cp 07/29 23:50 Order name: Wound dressing; Complete Time: 00:36 cp 07/30 03:55 Order name: Physical Therapy Consult EDMS 07/30 03:55 Order name: Heart Healthy EDMS EC/01 00:31 Rate is 72 beats/min. Rhythm is regular. TX interval is normal. QRS interval is normal. cp QT interval is normal. T waves are Inverted in lead aVR. Interpreted by me. Reviewed by me. Administered Medications: 07/29 20:24 Drug: fentaNYL (PF) 25 mcg {Note: RASS 1.} Route: IVP; Site: right antecubital; ag7 20:54 Follow up: Pain 6/10; Response: No adverse reaction; No change in condition; RASS: ag7 Alert and Calm (0) 21:20 CANCELLED (Duplicate Order): Demerol (meperidine) 25 mg IVP once; RASS on ADMIN: tw5 Combtv4, Very Agttd3, Agttd2, Rstlss1, AlertClm0, Drwsy-1, Lt Sdtn-2, Mod Sdtn-3, Dp Sdtn-4, UnArsble-5 21:36 Drug: Demerol (meperidine) 25 mg {Note: RASS 1.} Route: IVP; Site: right antecubital; ag7 22:00 Follow up: Pain 2/10 Adult; Response: No adverse reaction; Marked relief of symptoms; ag7 Pain is decreased 23:24 Drug: Ciprofloxacin 400 mg Volume: 200 ml; Route: IVPB; Infused Over: 60 mins; Site: ag7 right antecubital; 07/30 00:24 Follow up: Response: No adverse reaction; IV Status: Completed infusion; IV Intake: ag7 400ml 00:37 Drug: Lidocaine-Epinephrine -1%: (1:100,000) 10 ml {Note: ADMINISTERED BY PADMA Madrid.} ag7 Volume: 20 ml; Route: Infiltration; Disposition Summary: 07/29/21 22:56 Hospitalization Ordered Hospitalization Status: Observation cp Provider: Thaddeus Kwong cp Condition: Fair cp Problem: new cp Symptoms: have improved cp Bed/Room Type: Standard cp Location: [facility] ER HOLD(07/30/21 01:12) cg Room Assignment: ERHOLD-(07/30/21 01:12) cg Diagnosis - Fracture of nasal bones cp - Fall on same level, unspecified cp - Multiple fractures of ribs, right side cp - Contusion of lung, unilateral, initial encounter - right cp Forms: - Medication Reconciliation Form cp - SBAR form cp Signatures: Dispatcher [employer] EDMS Ronnie Flowers MD MD rn Chuy Madrid PA PA cp Garcia, Cindy RN RN Britt Tran RN RN [email or web address] Haydee Dorado tw5 Marah Spears RN RN ag7 Corrections: (The following items were deleted from the chart) 07/29 19:04 19:02 Head C Spine MPR Wo Con+CT.RAD.BRZ ordered. EDMS EDMS 19:17 19:03 Head C Spine CAP W Con+CT.RAD.BRZ ordered. EDMS EDMS 21:20 21:20 Demerol (meperidine) 25 mg IVP once; RASS on ADMIN: Combtv4, Very Agttd3, Agttd2, tw5 Rstlss1, AlertClm0, Drwsy-1, Lt Sdtn-2, Mod Sdtn-3, Dp Sdtn-4, UnArsble-5 ordered. cp 07/30 01:12 07/29 22:56 Intensive Care Unit cp cg 07/30 01:12 07/29 22:56 cp cg 07/30 03:56 03:47 IS+RC.RAD.BRZ ordered. EDMS EDMS
--- NOTE | 2021-07-29 22:56 | ER ---
Nurse's Notes [facility] Name: Fahad Nielsen Age: 66 yrs Sex: Female : 1955 Arrival Date: 07/29/2021 Time: 18:53 Bed 23 Private MD: Meliton Do Diagnosis: Fracture of nasal bones;Fall on same level, unspecified;Multiple fractures of ribs, right side;Contusion of lung, unilateral, initial encounter-right Presentation: 07/29 18:55 Chief complaint: Patient's son or daughter states: patient fell sometime today hit ap3 head, lost consciousness, patient is on blood thinners. Patient does not know when she fell or how long ago it was. Patient does not know how long she was out of consciousness. patient presents with head laceration on the left side of her head. Care prior to arrival: None. Mechanism of Injury: Fall from standing position. Trauma event details: Injury occurred in the [facility], Injury occurred: at home. Injury occurred: July 29, 2021. 18:55 Acuity: MOOKIE 2 ap3 18:55 Method Of Arrival: Wheelchair ap3 19:34 Coronavirus screen: At this time, the client does not indicate any symptoms associated ap3 with coronavirus-19. Ebola Screen: No symptoms or risks identified at this time. Initial Sepsis Screen: Does the patient meet any 2 criteria? No. Patient's initial sepsis screen is negative. Does the patient have a suspected source of infection? No. Patient's initial sepsis screen is negative. Risk Assessment: Do you want to hurt yourself or someone else? Patient reports no desire to harm self or others. Onset of symptoms is unknown. Trauma Activation: Alert Physician: ED Physician; Name: ; Notified At: 18:55; Arrived At: Physician: General Surgeon; Name: ; Notified At: 18:55; Arrived At: Physician: Radiology; Name: ; Notified At: 18:55; Arrived At: Physician: Respiratory; Name: ; Notified At: 18:55; Arrived At: Physician: Lab; Name: ; Notified At: 18:55; Arrived At: Historical: - Allergies: 19:00 Morphine; ap3 - PMHx: 19:00 Aneurysm; DVT; Hypertension; kidney CA; Strokes; ap3 - PSHx: 19:00 section; tubal; ap3 - Immunization history:: Adult Immunizations up to date, Client reports having NOT received the Covid vaccine. Last tetanus immunization: up to date < 5 years ago Flu vaccine is up to date. - Social history:: Smoking status: unknown. Screenin:32 Abuse screen: Denies threats or abuse. Nutritional screening: No deficits noted. ap3 Tuberculosis screening: No symptoms or risk factors identified. Fall Risk Fall in past 12 months (25 points). Secondary diagnosis (15 points) impaired mobility, IV access (20 points). Ambulatory Aid- Crutches/Cane/Walker (15 pts). Gait- Weak (10 pts.). Mental Status- Oriented to own ability (0 pts). Total [place]ales Fall Scale indicates High Risk Score (45 or more points). Fall prevention measures have been instituted. Side Rails Up X 2 Placed Close to Nursing Station Frequent Obs/Assessments Occuring Family Present and informed to notify staff if the need to leave the bedside As available patient and family educated on Fall Prevention Program and Strategies. Primary Survey: 18:58 NO uncontrolled hemorrhage observed. Breathing/Chest: Respiratory pattern: regular, ap3 Respiratory effort: spontaneous. Circulation: Skin color: pink. Disability Alert. Exposure/Environment: There is no evidence of uncontrolled external bleeding. Obvious injury(ies) are noted at this time: to her face, above her left eye, laceration to the left side of her nose. 21:01 Reassessment Breathing/Chest Respiratory pattern Regular Respiratory effort Spontaneous ag7 Unlabored Breath sounds Diminished Chest inspection Symmetrical. Secondary Survey: 20:04 Injury Description: Bruise sustained to anterior aspect of right lateral abdomen, right ag7 arm and left arm Deformity sustained to nose Edema nasal area Laceration sustained to forehead left redness noted to the knees bilateral, left knee abrasion size of a dime. Assessment: 18:57 General: Appears uncomfortable, Behavior is calm, cooperative. Pain: Complains of pain ap3 in face. Neuro: Level of Consciousness is awake, alert, obeys commands, Oriented to person, place, time, situation. Cardiovascular: Patient's skin is warm and dry. Respiratory: Airway is patent Respiratory effort is even, unlabored, Respiratory pattern is regular, symmetrical. Derm: Wound noted face. Injury Description: fall. 19:31 Reassessment: Patient and/or family updated on plan of care and expected duration. Pain ag7 level reassessed. Patient c/o left face pain 6/10 Dry red fluids noted to face generalized. 20:30 Reassessment: Patient and/or family updated on plan of care and expected duration. Pain ag7 level reassessed. facial pain 6/10. 20:56 Reassessment: Patient and/or family updated on plan of care and expected duration. Pain ag7 level reassessed. Patient states feeling better. 22:03 Reassessment: Patient and/or family updated on plan of care and expected duration. Pain ag7 level reassessed. Patient is alert, oriented x 3, equal unlabored respirations, skin warm/dry/pink. Patient states feeling better. Patient states symptoms have improved. 23:00 Reassessment: No changes from previously documented assessment. Patient and/or family ag7 updated on plan of care and expected duration. Pain level reassessed. Patient is alert, oriented x 3, equal unlabored respirations, skin warm/dry/pink. Patient states feeling better. 07/30 00:00 Reassessment: No changes from previously documented assessment. Patient and/or family ag7 updated on plan of care and expected duration. Pain level reassessed. Patient is alert, oriented x 3, equal unlabored respirations, skin warm/dry/pink. Patient states feeling better. 01:00 Reassessment: No changes from previously documented assessment. Patient and/or family ag7 updated on plan of care and expected duration. Pain level reassessed. Patient is alert, oriented x 3, equal unlabored respirations, skin warm/dry/pink. Patient states feeling better. 02:00 Reassessment: Patient and/or family updated on plan of care and expected duration. Pain ag7 level reassessed. Patient is alert, oriented x 3, equal unlabored respirations, skin warm/dry/pink. facial pain 6/10, refusing additional medication at this time. 03:00 Reassessment: No changes from previously documented assessment. ag7 Vital Signs: 07/29 19:31 BP 130 / 62; Pulse 77; Temp 98; Pulse Ox 100% ; Weight 51.26 kg; Height 5 ft. 6 in. ap3 (167.64 cm); Pain 6/10; 19:45 BP 110 / 61 LA (man/reg); Pulse 73 MON; Resp 20 S; Pulse Ox 100% on R/A; Pain 6/10; ag7 20:00 BP 118 / 62 LA (man/reg); Pulse 73 MON; Resp 20 S; Pulse Ox 100% on R/A; Pain 6/10; ag7 20:15 BP 120 / 57 LA Supine (man/reg); Pulse 62 MON; Resp 20 S; Pulse Ox 100% ; Pain 6/10; ag7 20:30 BP 135 / 60 LA Supine (auto/reg); Pulse 60 MON; Resp 20 S; Pulse Ox 100% on R/A; Pain ag7 6/10; 20:54 Pain 6/10; ag7 21:07 BP 125 / 52 LA (auto/reg); Pulse 72 MON; Resp 16 S; Pulse Ox 100% on R/A; Pain 6/10; ag7 21:15 BP 134 / 58; Pulse 71; Resp 16; Pulse Ox 100% on R/A; Pain 6/10; ag7 21:30 BP 125 / 57; Pulse 79; Resp 16 S; Pulse Ox 96% on R/A; Pain 6/10; ag7 21:45 BP 126 / 43; Pulse 65; Resp 16 S; Pulse Ox 97% on R/A; Pain 2/10; ag7 22:00 Pain 2/10; ag7 23:45 BP 124 / 43; Pulse 60; Resp 16; Pulse Ox 97% ; Pain 2/10; ag7 23:45 BP 117 / 64; Pulse 69; Resp 16; Pulse Ox 98% on R/A; Pain 2/10; ag7 04/01 00:45 BP 96 / 51 LA Supine (auto/reg); Pulse 70 LA; Resp 16 S; Pulse Ox 98% on R/A; Pain 3/10;ag7 02:00 BP 114 / 79 LA Supine (auto/reg); Pulse 92 MON; Resp 16 S; Pulse Ox 98% on R/A; Pain ag7 6/10; 07/29 19:31 Body Mass Index 18.24 (51.26 kg, 167.64 cm) ap3 Abiodun Coma Score: 07/29 20:30 Eye Response: spontaneous(4). Verbal Response: confused(4). Motor Response: obeys ag7 commands(6). Total: 14. 22:04 Eye Response: spontaneous(4). Verbal Response: oriented(5). Motor Response: obeys ag7 commands(6). Total: 15. Trauma Score (Adult): 21:01 Eye Response: spontaneous(1); Verbal Response: confused(1); Motor Response: obeys ag7 commands(2); Systolic BP: > 89 mm Hg(4); Respiratory Rate: 10 to 29 per min(4); [place] Score: 14; Trauma Score: 12 ED Course: 18:53 Patient arrived in ED. es 18:53 Meliton Do, is Private Physician. es 18:57 Triage completed. ap3 19:01 Chuy Madrid PA is PHCP. cp 19:01 Chuy Garcia MD is Attending Physician. cp 19:23 CT Facial Bones W/O Con In Process Unspecified. EDMS 19:24 Head C Spine Mpr Wo Con In Process Unspecified. EDMS 19:31 Marah Spears, RN is Primary Nurse. ag7 19:32 Patient maintains SpO2 saturation greater than 95% on room air. ap3 19:33 Thermoregulation: warm blanket given to patient. ap3 19:33 Inserted saline lock: 22 gauge in right antecubital area, using aseptic technique. ap3 Blood collected. 19:33 Patient has correct armband on for positive identification. Bed in low position. Call ap3 light in reach. Side rails up X2. Pulse ox on. NIBP on. Door closed. Noise minimized. Warm blanket given. 19:33 Patient neck collar. ag7 20:58 Chest Abdomen Pelvis W Cont In Process Unspecified. EDMS 21:28 XRAY Hip LEFT 2 view In Process Unspecified. EDMS 22:52 Thaddeus Kwong MD is Hospitalizing Provider. cp 04 00:36 Dressings: Band aid x 2 forehead left s/p suture per PADMA Madrid, no drainage noted, ag7 sutures intact. Administered Medications: 07/29 20:24 Drug: fentaNYL (PF) 25 mcg {Note: RASS 1.} Route: IVP; Site: right antecubital; ag7 20:54 Follow up: Pain 6/10; Response: No adverse reaction; No change in condition; RASS: ag7 Alert and Calm (0) 21:20 CANCELLED (Duplicate Order): Demerol (meperidine) 25 mg IVP once; RASS on ADMIN: tw5 Combtv4, Very Agttd3, Agttd2, Rstlss1, AlertClm0, Drwsy-1, Lt Sdtn-2, Mod Sdtn-3, Dp Sdtn-4, UnArsble-5 21:36 Drug: Demerol (meperidine) 25 mg {Note: RASS 1.} Route: IVP; Site: right antecubital; ag7 22:00 Follow up: Pain 210 Adult; Response: No adverse reaction; Marked relief of symptoms; ag7 Pain is decreased 23:24 Drug: Ciprofloxacin 400 mg Volume: 200 ml; Route: IVPB; Infused Over: 60 mins; Site: ag7 right antecubital; 07/30 00:24 Follow up: Response: No adverse reaction; IV Status: Completed infusion; IV Intake: ag7 400ml 00:37 Drug: Lidocaine-Epinephrine -1%: (1:100,000) 10 ml {Note: ADMINISTERED BY PADMA Madrid.} ag7 Volume: 20 ml; Route: Infiltration; Intake: 00:24 IV: 400ml; Total: 400ml. ag7 Output: 07/29 21:45 Urine: 1ml (Voided); Total: 1ml. ag7 Outcome: 22:56 Decision to Hospitalize by Provider. amee 07/30 18:18 Patient left the ED. iw Signatures: Dispatcher [employer] Rosy Bauer Irene, RN RN iw Page, Corey, PA PA cp Prokisch, Amanda, RN RN ap3 Marah Spears RN RN ag7 Haydee Dorado tw5 Corrections: (The following items were deleted from the chart) 07/29 20:58 19:31 Reassessment: Patient and/or family updated on plan of care and expected ag7 duration. Pain level reassessed. Patient is alert, oriented x 3, equal unlabored respirations, skin warm/dry/pink. Patient c/o left face pain 6/10 Dry red fluids noted to face generalized. ag7 20:58 20:56 Reassessment: Patient and/or family updated on plan of care and expected ag7 duration. Pain level reassessed. Patient is alert, oriented x 3, equal unlabored respirations, skin warm/dry/pink. Patient states feeling better. ag7 21:00 20:04 Injury Description: Bruise sustained to forehead Edema nasal area Laceration ag7 sustained to forehead left ag7
[2021-07-29] MEDS ORDERED: LIDOCAINE 1% W/EPI 1:100,000 MDV 50 ML VIAL ONE (23:00)
[2021-07-29] MEDS ORDERED: CIPROFLOXACIN 400mg IV 400 MG/200 ML BAG IV ONE (23:17)
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
[2021-07-30] MEDS ORDERED: ACETAMINOPHEN 500 MG TAB PO PRN (01:22)
[2021-07-30] MEDS ORDERED: ONDANSETRON 4 MG/2 ML VIAL IV PRN (01:22)
[2021-07-30] MEDS: NA CHLORIDE 0.9% 1,000 ML IV SCH ×2 (02:00→12:00)
[2021-07-30] MEDS ORDERED: NA CHLORIDE 0.9% 1,000 ML ONE (03:46)
[2021-07-30] MEDS ORDERED: HYDROCODONE/APAP 7.5/325 MG TAB ONE ×2 (03:46→13:20)
[2021-07-30 03:56] LABS: Absolute Lymphocytes (CBC) 1.5 K/uL (0.7-4.9); Hematocrit 32.1 % (36.0-45.0); Lymphocytes % 24.2 % (15.3-44.8); MPV 8.5 fL (7.6-11.3); RBC Red Blood Cell Count 3.71 M/uL (3.86-4.86)
[2021-07-30] MEDS: HYDROCODONE/APAP 7.5/325 MG TAB PO PRN ×2 (04:00→13:18)
[2021-07-30 04:22] VITALS: BMI 18.2
[2021-07-30 04:23] LABS: Albumin 3.2 g/dL (3.4-5.0); Bilirubin Total 0.4 mg/dL (0.2-1.0); Potassium 3.8 mmol/L (3.5-5.1); Protein, Total 6.3 g/dL (6.4-8.2)
--- NOTE | 2021-07-30 04:25 | HP ---
Date of Admission: 07/30/2021 Reason For Service: Trauma, nose fracture, rib fracture, pulmonary contusion status post fall and la ceration to the forehead. History Of Present Illness: This is a case of a 66-year-old patient who comes to us with what she is saying that it was a simple trip. She did not have any loss of consciousness. She did not have any dizziness. Basically, she was just walking and tripped. Obviously, she fell and hit the right side , hit the forehead, and hit the nose. She came to the ER awake and alert with GCS of 15. After the trauma workup, she was found to have multiple fractures in the rib and also pulmonary contusion and a surgical consult was obtained for observation and admission. She denies any dysuria, hematuria, hem atochezia, or melena. Denies any recent traveling out of the country. Denies any family member sick at home. She has history of strokes. She is on Plavix. Once again, she claims she does not have a ny symptoms that are even related to the previous strokes. Past Medical History: Include strokes, history of kidney cancer, DVT, hypertension. Allergies: IODINE AND MORPHINE. Past Surgical History: Include . Social History: She does not smoke. She does not drink alcohol. Family History: Noncontributory. Medications: We are still gathering them, but we know one of them includes Plavix. Medical doctors are helping us with the rest. Review of Systems: See H and P. At this moment, no shortness of breath. No chest pain. No weakness. No fever. Physical Examination: General: The patient is awake, alert. HEENT: Pupils are equal and reactive, anicteric. There is a laceration on the forehead. The ER is working on that. The nose shows some bruises of the area with some deformity with no open wounds. M andible stable. Neck: No step-off. No pinpoint tenderness. Chest: She has bilateral breath sounds. Multiple areas in the right rib with mild tenderness, but n o step-off. No gross deformities. Abdomen: Soft and depressible. No guarding or rebound. No peritoneal signs. Pelvis: Stable. Breasts: No mass. No hematomas. Genitalia: Deferred. Rectal: Deferred. Extremities: Good capillary refill. Full range of motion. Multiple bruises in the skin, which she says are chronic. Peripheral pulses are still present. Neuro: Cranial nerves 2-12 grossly normal limits. Imaging: CAT scan of the head, C-spine, abdomen and pelvis shows no acute intracranial bleeding or f indings. Advanced for her age, cervical spine degenerative changes. CT of the facial bones shows na coby bone fracture with a very minimal 1 mm right lateral displacement. CAT scan of the abdomen, ches t, and pelvis shows anterior right third, fifth and sixth ribs show a slight cortical angulation. A definitive fracture line is not identified. In the right middle lobe, near the ribs, are minimal pun ctate area of air space opacification, possible pulmonary contusion. Trauma infiltrate is lesser in likelihood given the trauma settings. No pneumothorax. No pleural effusion. No wide mediastinum. Hip x-ray shows no fracture. Laboratory Data: Blood work shows WBC count of 11, hemoglobin of 12.3, platelets of 319, chloride is 105, glucose 92. Assessment: A 66-year-old patient status post 4 lacerations of the forehead, pulmonary contusion mul tiple rib fractures, nasal bone fracture, and history of stroke on anticoagulation. The patient now will be admitted to the ICU. X-ray will be repeated in several hours. The Medical Service is yasemin chin with the medical management of the patient. We encouraged incentive spirometry. Get Rehab to elp her mobilize and we can identify how safe it is, her gait. Continue neuro checks. We are going to request ENT for evaluation of her nose fracture. LOREN/OKSANA Voice ID: [id number]
[2021-07-30] MEDS ORDERED: PNEUMOCOCCAL VACCINE 0.5 ML IMVAC ONE ×2 (08:00→18:00)
[2021-07-30 08:02] VITALS: O2SAT 97
[2021-07-30] MEDS ORDERED: Levofloxacin500mg IV 500 MG/100 ML BAG IV SCH (09:00)
[2021-07-30] MEDS ORDERED: Levofloxacin500mg IV 500 MG/100 ML BAG IV ONE (09:47)
[2021-07-30 13:26] VITALS: BP 122/76; TEMP 98.5
--- NOTE | 2021-07-30 19:01 | PN ---
Diagnoses: Nasal bone fracture, forehead laceration, status post fall, multiple rib fracture, pulmon jada contusion, history of TIAs, head concussion, LOC positive. Subjective: This is the case of a 66-year-old patient fell yesterday. She states she tripped with t he injuries above. Overnight patient doing well. No complaint. No nausea. No vomiting. No fever. No seizures. Review of Systems: Ten points otherwise unremarkable. Otherwise, there is in the nose from the fracture and also the pa in in the forehead. Neuro checks been stable. Physical Examination: General: The patient is awake, alert. HEENT: Pupils equal reactive forehead status post laceration repair. Nose with swelling of a dorsal aspect of it. Tongue midline. Neck: Supple. No pinpoint tenderness. No JVD. No step-off. Chest: Bilateral breath sounds. Multiple areas of bruises on the right side, but no step-off. No p neumothorax. No crepitus. Heart: S1, S2. Abdomen: Soft and depressible. No guarding or rebound. No peritoneal signs. Pelvis: Stable. Pelvic: Deferred. Rectal: Deferred. Breast: Deferred. EXTREMITIES: Good capillary refill. Full range of motion x4. Neuro: Cranial nerves 2 through 12 grossly normal limits. Imaging: CAT scan of the head, C-spine, chest, pelvis, facial bones discussed once again with the itzel anderson. Blood Work: Reviewed with a hemoglobin of 10.4 and WBC count of 6.3. Assessment: See above. Plan: From the nose standpoint, the ENT was consulted. She is going to see her next week in her off ice. Forehead standpoint, the area is lacerated with it was repair. We asked her to keep the area d ry for 24 hours, then may clean with soap and water and put Neosporin over that. For the pulmonary c ontusion, I discussed the case with Dr. Olivo, pulmonology this morning. We going to continue inc entive spirometry. Rib fractures, we are going to send her home with pain control. From the head co ncussion, there is some reported LOC that she mentioned during the case. So, we waiting for neurolog ist to give us a clearance. We understand she has TIAs in the past. She has CVAs and even though sh e thinks she tripped at this moment I want to make sure that we have the input from the neurologist t o make sure it is a safe discharge. From that gastrointestinal standpoint, she is tolerating diet. 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 Follow with her primary doctors. Incentive spirometry. Avoid trauma and falls. Follow up with her ENT surgeon and follow with us in a week to remove the stitches from the face. LOREN/OKSANA Voice ID: [id number] Report ID: [id number]
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
--- NOTE | 2021-08-02 11:22 | EKG ---
Test Date: 2021-07-30 Test Time: 00:29:43 Circulation Clerk: HASEEB MEASUREMENT RESULTS: Intervals: Rate: 72 NC: 176 QRSD: 100 QT: 408 QTc: 446 [place]: P: 49 NC: 176 QRS: 50 T: 56 INTERPRETIVE STATEMENTS: Normal sinus rhythm Normal ECG Compared to ECG 10/20/2020 13:19:24 Sinus bradycardia no longer present Electronically Signed On 08-02-21 11:13:51 CDT by Trent Ashley
== END 2021-07-30 17:13 | disposition home or self-care (01) ==
LOC: ER 18:50 → ERHOLD 07-30 03:27
PROVIDERS: ADMIT Surgery; ATTEND Surgery
PROC: 0JQ10ZZ Repair Face Subcutaneous Tissue and Fascia, Open Approach (ICD-10-PCS; principal; 2021-07-29)
DX: S02.2XXA Fracture of nasal bones, initial encounter for closed fracture (principal); S01.81XA Laceration without foreign body of other part of head, initial encounter; S27.321A Contusion of lung, unilateral, initial encounter; S22.41XA Multiple fractures of ribs, right side, initial encounter for closed fracture; S06.0X9A Concussion with loss of consciousness of unspecified duration, initial encounter; I69.354 Hemiplegia and hemiparesis following cerebral infarction affecting left non-dominant side; I10 Essential (primary) hypertension; W01.190A Fall on same level from slipping, tripping and stumbling with subsequent striking against furniture, initial encounter; Y92.009 Unspecified place in unspecified non-institutional (private) residence as the place of occurrence of the external cause; Z85.528 Personal history of other malignant neoplasm of kidney
CPT/HCPCS: 96365; 93005; 85025 ×2; 80048; 36415; 86900; 86850; 82550; 86901; 84484; 80053; 70450; 72125; 71260; 70486; 76377; 74177; 71045; 73502; 97112; 97116; 97161; 94010; 96375; 99284; 12013; Q9967; J3010; J2175; J7030; J0744; G0378 ×2

== ENCOUNTER 2021-08-09 08:14 | Day surgery (SDC) | payer OTHER ==
[2021-08-09] MEDS ORDERED: Ringers Lactate 1,000 ML IV ONE (08:45)
[2021-08-09] MEDS ORDERED: CEFAZOLIN SODIUM 1 GM/VIAL ONE (08:45)
[2021-08-09] MEDS ORDERED: ENOXAPARIN 30 MG/0.3 ML SQ ONE (09:02)
[2021-08-09] MEDS ORDERED: ACETAMINOPHEN 500 MG TAB ONE (09:06)
[2021-08-09] MEDS ORDERED: MIDAZOLAM HCL 2 MG/2 ML INJ ONE (10:08)
[2021-08-09] MEDS ORDERED: LIDOCAINE 2% MPF 5 ML VIAL ONE (10:08)
[2021-08-09] MEDS ORDERED: FENTANYL CITR 100 MCG/2 ML ONE (10:08)
[2021-08-09] MEDS ORDERED: propofoL 200 MG/20 ML VIAL IV ONE (10:08)
[2021-08-09] MEDS ORDERED: ONDANSETRON 4 MG/2 ML VIAL ONE (10:09)
[2021-08-09] MEDS ORDERED: LANO/MINERAL OIL/PETRO 3.5 GM ONE (10:15)
[2021-08-09] MEDS ORDERED: LIDOCAINE 1% W/EPI 1:100,000 10 ML VIAL ONE (10:15)
[2021-08-09] MEDS ORDERED: OXYMETAZOLINE HCL 0.05% 15ML NAS ONE (10:15)
[2021-08-09] MEDS ORDERED: EPHEDRINE SULF 50 MG/ML VIAL ONE (10:34)
[2021-08-09] MEDS ORDERED: Mastisol Adhesive Liq ONE (10:39)
[2021-08-09 12:22] VITALS: BP 108/56; O2SAT 99
[2021-08-09 14:16] VITALS: TEMP 96.6
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
== END 2021-08-09 12:49 | disposition home or self-care (01) ==
LOC: OR 08:14
PROVIDERS: ATTEND Otolaryngology Facial Plastic Surgery
PROC: 0NSBXZZ Reposition Nasal Bone, External Approach (ICD-10-PCS; principal; 2021-08-09 10:45)
DX: S02.2XXA Fracture of nasal bones, initial encounter for closed fracture (principal); Z20.822 Contact with and (suspected) exposure to COVID-19; E78.5 Hyperlipidemia, unspecified
CPT/HCPCS: 21320; U0003; J2704; J1650; J2250; J7120; J2405; J0690; J3010

== ENCOUNTER 2024-07-31 16:10 | Emergency (ER) | payer OTHER ==
--- NOTE | 2024-07-31 16:51 | RAD REPORT ---
Procedure: Chest Single View HISTORY: Cough COMPARISON: 2022 FINDINGS: The lungs appear clear of acute infiltrate.. Lungs are hyperaerated. No significant pleural effusion noted. The heart is normal size. IMPRESSION: No acute abnormality is displayed.
[2024-07-31 17:05] LABS: Absolute Basophils 0.1 K/uL (0-0.5); Absolute Eosinophils 0.6 K/uL (0-0.5); Absolute Lymphocytes (CBC) 1.2 K/uL (0.7-4.9); Absolute Monocytes 0.7 K/uL (0.1-1.3); Absolute Neutrophil 3.5 K/uL (1.8-8.0); Basophils % 1.1 % (0-1.3); Eosinophils % 9.9 % (0-4.4); Hematocrit 36.9 % (36.0-45.0); Lymphocytes % 19.7 % (15.3-44.8); MCH 28.5 pg (27.0-35.0); MCHC 32.5 g/dL (32.0-36.0); MCV 87.8 fL (80-100); MPV 8.8 fL (7.6-11.3); Neutrophils % 58.3 % (41.7-73.7); Nucleated Red Blood Cells % 0.1 % (0-0); Platelets 228 thou/uL (152-406); RBC Red Blood Cell Count 4.21 M/uL (3.86-4.86); Red Cell Distribution Width 14.9 % (12.1-15.2)
[2024-07-31 17:19] LABS: Anion Gap 7.1 mEq/L (5.0-15.0); Potassium 4.1 mEq/L (3.5-5.1)
[2024-07-31 17:24] LABS: Influenza A Ag Negative; Influenza B Ag Negative; SARS-CoV-2 Antigen Rapid Res Negative (Negative)
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
--- NOTE | 2024-07-31 17:28 | ER ---
Nurse's Notes [facility] Name: Fahad Nielsen Age: 69 yrs Sex: Female : 1955 Arrival Date: 07/31/2024 Time: 16:10 Bed 20 Private MD: Diagnosis: Cough;Essential (primary) hypertension Presentation: 07/31 16:39 Chief complaint: Patient states: was sent from Dr. Sanchez office for abnormal EKG, iw denies chest pain or dizziness, + SOB , hx of asthma. Coronavirus screen: At this time, the client does not indicate any symptoms associated with coronavirus-19. Ebola Screen: No symptoms or risks identified at this time. Initial Sepsis Screen: Does the patient meet any 2 criteria? No. Patient's initial sepsis screen is negative. Does the patient have a suspected source of infection? No. Patient's initial sepsis screen is negative. Risk Assessment: Do you want to hurt yourself or someone else? Patient reports no desire to harm self or others. Onset of symptoms was July 31, 2024. 16:39 Method Of Arrival: Ambulatory iw 16:39 Acuity: MOOKIE 3 iw Triage Assessment: 16:42 General: Appears in no apparent distress. Behavior is calm, cooperative. iw Historical: - Allergies: 16:40 Morphine; iw - PMHx: 16:40 kidney CA; Aneurysm; Hypertension; Strokes; DVT; iw - PSHx: 16:40 section; tubal; iw - Immunization history:: Adult Immunizations up to date. - Infectious Disease History:: Denies. - Social history:: Smoking status: Patient/guardian denies using tobacco, Stopped _ months ago 4. Screenin:32 [facility] ED Fall Risk Assessment (Adult) History of falling in the last 3 months, kj2 including since admission No falls in past 3 months (0 pts) Confusion or Disorientation No (0 pts) Intoxicated or Sedated No (0 pts) Impaired Gait No (0 pts) Mobility Assist Device Used No (0 pt) Altered Elimination No (0 pt) Score/Fall Risk Level 0 - 2 = Low Risk Maintained a safe environment, Hourly rounding (assess needs \T\ fall precautionary measures) done. Abuse screen: Denies threats or abuse. Denies injuries from another. Nutritional screening: No deficits noted. Tuberculosis screening: No symptoms or risk factors identified. Assessment: 17:15 Reassessment: Patient and/or family updated on plan of care and expected duration. Pain ll1 level reassessed. 17:31 Reassessment: Patient appears in no apparent distress at this time. Patient and/or kj2 family updated on plan of care and expected duration. Pain level reassessed. Patient is alert, oriented x 3, equal unlabored respirations, skin warm/dry/pink. 17:32 Pain: Denies pain. kj2 Vital Signs: 16:39 BP 185 / 79; Pulse 69; Resp 18; Temp 99.2(TE); Pulse Ox 93% ; Weight 54.43 kg; Height 5 iw ft. 6 in. ; Pain 0/10; 16:39 Body Mass Index 19.37 (54.43 kg, 167.64 cm) iw 16:39 Pain Scale: Adult iw ED Course: 16:15 Patient arrived in ED. im 16:17 Yoni Vang DO is Attending Physician. ms3 16:35 XRAY Chest (1 view) In Process Unspecified. EDMS 16:40 Triage completed. iw 17:15 Sarai Bojorquez, RN is Primary Nurse. kj2 17:15 Arm band placed on Patient placed in an exam room, on a stretcher. ll1 17:20 Patient has correct armband on for positive identification. Bed in low position. Call kj2 light in reach. Provided Education on: call light. 17:25 Initial lab(s) drawn, by me, sent to lab. Urine collected: clean catch specimen, EKG kb4 done, by ED staff, reviewed by Yoni Vnag DO. 17:33 No provider procedures requiring assistance completed. kj2 17:33 IV discontinued, intact, bleeding controlled, No redness/swelling at site. Pressure kj2 dressing applied. Administered Medications: 17:31 Not Given (Patient Refused): aspirinchewable tablet 324 mg PO once; 81 mg tablets x 4 kj2 Medication: 17:32 VIS not applicable for this client. kj2 Outcome: 17:28 Discharge ordered by . ms3 17:33 Discharged to home ambulatory, kj2 17:33 Condition: stable 17:33 Discharge instructions given to patient, Instructed on discharge instructions, follow up and referral plans. Demonstrated understanding of instructions, follow-up care, 18:01 Patient left the ED. kj2 Signatures: Dispatcher [employer] EDMS Errol, Deborah, RN RN iw Elias Murillo RN RN ll1 Yoni Vang, DO ms3 Vero Yuan Krystal RN RN kj2 Donna Siddiqui kb4 Corrections: (The following items were deleted from the chart) 16:43 16:39 BP 185 / 79; Pulse 69bpm; Resp 18bpm; Pulse Ox 93%; iw iw
[2024-07-31] MEDS ORDERED: ASPIRIN 81 MG CHEWABLE TABLET ONE (17:30)
[2024-07-31 18:47] VITALS: BP 185/79; TEMP 99.2; O2SAT 93
--- NOTE | 2024-08-02 13:31 | EKG ---
Test Date: 2024-07-31 Test Time: 16:50:48 [place]or [place]: MIGUEL MEASUREMENT RESULTS: Intervals: Rate: 61 MS: 170 QRSD: 100 QT: 418 QTc: 420 [place]: P: 64 MS: 170 QRS: 49 T: 62 INTERPRETIVE STATEMENTS: Normal sinus rhythm Normal ECG Compared to ECG 07/30/2021 00:29:43 No significant changes Electronically Signed On 08-02-24 13:20:04 CDT by Tyler Cantu
== END 2024-07-31 18:01 | disposition home or self-care (01) ==
LOC: ER 16:10
DX: R05.9 Cough, unspecified (principal); I10 Essential (primary) hypertension; Z11.52 Encounter for screening for COVID-19
CPT/HCPCS: 36415; 71045; 80048; 85025; 87428; 93005; 99283